=== PATIENT | male | born 1945 | race Caucasian/White ===

== ENCOUNTER 2023-07-01 20:11 | Outpatient (CLI) | payer MEDICARE, BC, SELFPAY ==
--- OUTSIDE RECORDS SUMMARY | 2023-07-01 20:15 | XMS_ITS | Continuity of Care Document ---
Author Name Unknown Organization [facility] Address [address] [place] [address] Phone Care Team Providers Care Spinner Concrete Pipe Name Role Phone Delmer Luu MD Unavailable Unavailable Allergies, Adverse Reactions, Alerts Substance Reaction Status Criticality venom-honey bee Swelling Active No Informati on PROCAINE HCL Active No Information Medications Medication Instructions Dosage Effective Dates (start - stop) Status Comments meloxicam 15 mg tablet take 1 tablet by oral route every day 15 MG - Active hydroxychloroquine 200 mg tablet take 1 Tablet by oral route 2 times every day 200 MG - Active rosuvastatin 5 mg tablet take 1 tablet b y oral route every day 5 MG - Active vitamin E 670 mg (1,000 unit) capsule One daily - Active Vitamin D3 50 mcg (2,000 unit) tablet take 1 by Oral route every day 1 - Active tamsulosin 0.4 mg capsule take 1 capsule by oral route every day 1/2 hour following the same meal each day 0.4 MG - Active Flonase Allergy Relief 50 mcg/actuation nasal spray,suspension inhale 1 puff by oral route every day 1 puff - Active Vitamin B-12 1,000 mcg tablet take 1 Tablet by Oral route every day 1 Tablet - Active magnesium 250 mg tablet 2 tabs daily - Act lolis Fish Oil 1,000 mg capsule take 1 by Oral route 2 times every day - Active Restasis 0.05 % Eye Dropperette instill 1 drop by ophthalmic route every 12 hours into affected eye(s) 1.00 drop - Active Procedures Procedure Date Office/Outpatient Visit, Est Routine Venipuncture Specimen Handling Assay Of Creatinine Assay Alkaline Phosphatase Transferase (Ast) (Sgot) Alanine Amino (Alt) (Sgpt) Assay Of Urea Nitrogen Assay Of Blood/Uric Acid CReactive Protein Dna Antibody, Single Strand Dna Antibody, [place] Nuclear Antigen Antibodies Complete Cbc WAuto Diff Wbc Office/Outpatient Visit, Est Routine Venipuncture Specimen Handling Assay Of Creatinine Assay Alkaline Phosphatase Transferase (Ast) (Sgot) Alanine Amino (Alt) (Sgpt) Assay Of Urea Nitrogen Assay Of Blood/Uric Acid CReactive Protein Dna Antibody, Single Strand Dna Antibody, [place] Nuclear Antigen Antibodies Vitamin D 25 Hydroxy Complete Cbc WAuto Diff Wbc Office/Outpatient Visit, Est Routine Venipuncture Specimen Handling Assay Of Creatinine Assay Alkaline Phosphatase Transferase (Ast) (Sgot) Alanine Amino (Alt) (Sgpt) Assay Of Urea Nitrogen Assay Of Blood/Uric Acid CReactive Protein Dna Antibody, Single Strand Dna Antibody, [place] Nuclear Antigen Antibodies Vitamin D 25 Hydroxy Complete Cbc WAuto Diff Wbc Office/Outpatient Visit, Est Routine Venipuncture Specimen Handling Assay Of Creatinine Assay Alkaline Phosphatase Transferase (Ast) (Sgot) Alanine Amino (Alt) (Sgpt) Assay Of Urea Nitrogen Assay Of Blood/Uric Acid CReactive Protein Dna Antibody, Single Strand Dna Antibody, [place] Nuclear Antigen Antibodies Complete Cbc WAuto Diff Wbc Office/Outpatient Visit, Est Routine Venipuncture Specimen Handling Assay Of Creatinine Assay Alkaline Phosphatase Transferase (Ast) (Sgot) Alanine Amino (Alt) (Sgpt) Assay Of Urea Nitrogen Assay Of Blood/Uric Acid CReactive Protein Dna Antibody, Single Strand Dna Antibody, [place] Nuclear Antigen Antibodies Complete Cbc WAuto Diff Wbc Office/Outpatient Visit, Est Routine Venipuncture Specimen Handling Assay Of Creatinine Assay Alkaline Phosphatase Transferase (Ast) (Sgot) Alanine Amino (Alt) (Sgpt) Assay Of Urea Nitrogen Assay Of Blood/Uric Acid CReactive Protein Dna Antibody, Single Strand Dna Antibody, [place] Nuclear Antigen Antibodies Complete Cbc WAuto Diff Wbc Office/Outpatient Visit, Est Routine Venipuncture Assay Of Creatinine Assay Alkaline Phosphatase Transferase (Ast) (Sgot) Alanine Amino (Alt) (Sgpt) Assay Of Urea Nitrogen Assay Of Blood/Uric Acid CReactive Protein Complete Cbc WAuto Diff Wbc Office/Outpatient Visit, Est Routine Venipuncture Specimen Handling Rbc Sed Rate, Nonautomated Assay Of Creatinine Assay Alkaline Phosphatase Transferase (Ast) (Sgot) Alanine Amino (Alt) (Sgpt) Assay Of Urea Nitrogen Assay Of Blood/Uric Acid CReactive Protein Dna Antibody, Single Strand Dna Antibody, [place] Nuclear Antigen Antibodies Complete Cbc WAuto Diff Wbc Office/Outpatient Visit, Est Routine Venipuncture Rbc Sed Rate, Nonautomated CReactive Protein Dna Antibody, Single Strand Dna Antibody, [place] Nuclear Antigen Antibodies Office/Outpatient Visit, Est Routine Venipuncture Specimen Handling Complete Cbc WAuto Diff Wbc CReactive Protein Assay Of Serum Albumin Assay Of Creatinine Transferase (Ast) (Sgot) Alanine Amino (Alt) (Sgpt) Office/Outpatient Visit, Est Routine Venipuncture Specimen Handling Complete Cbc WAuto Diff Wbc Assay Of Serum Albumin Assay Of Creatinine Transferase (Ast) (Sgot) Alanine Amino (Alt) (Sgpt) CReactive Protein Dna Antibody, Single Strand Dna Antibody, [place] Nuclear Antigen Antibodies Office/Outpatient Visit, Est Routine Venipuncture Specimen Handling Complete Cbc WAuto Diff Wbc CReactive Protein Assay Of Serum Albumin Assay Of Creatinine Transferase (Ast) (Sgot) Alanine Amino (Alt) (Sgpt) Office/Outpatient Visit, Est Office/Outpatient Visit, Est Routine Venipuncture Complete Cbc WAuto Diff Wbc CReactive Protein Assay Of Serum Albumin Assay Of Creatinine Transferase Ast Sgot Alanine Amino (Alt) (Sgpt) Office/Outpatient Visit, Est Routine Venipuncture CReactive Protein Complete Cbc WAuto Diff Wbc Assay Of Serum Albumin Assay Of Creatinine Transferase Ast Sgot Alanine Amino Alt Sgpt Advance Directives Directive Yes / No Effective Date File Name No Information Encounters Encounter Description Practice Location Reason(s) For Visit Diagnoses Date Provider Providers Copied on Encounter [facility] , [address], [place], [address], [place] tel:[phone] [facility] , No Information 3 Jus Dowell. [facility] [address], [place], [address], [place]. tel:[phone] Office/Outpa tient Visit, Est [facility] , [address], [place], [address], [place] tel:[phone] [facility] , Follow Up of Sjogren's syndrome (chief complaint) Sjogren's syndromeSpin al stenosis, lumbar region with neurogenic claudication Radiculopath y, cervical regionSciati caLong term (current) use of non-steroida l anti-inflamm atories (NSAID) 3 Jus Dowell. [facility] [address], [place], [address], [place]. tel:[phone] Referring Provider: Delmer Marcum, [facility] [address], [place], [address]. tel:[phone] Office/Outpa tient Visit, Est [facility] , [address], [place], [address], [place] tel:[phone] [facility] , Follow Up of Sjogren's syndrome (chief complaint) Sjogren's syndromeSpin al stenosis, lumbar region with neurogenic claudication Radiculopath y, cervical regionSciati caAbnormal results of liver function studiesLong term (current) use of non-steroida l anti-inflamm atories (NSAID) 3 Jus Dowell. [facility] [address], [place], [address], [place]. tel:[phone] Referring Provider: Delmer Marcum, [facility] [address], [place], [address]. tel:[phone] Office/Outpa tient Visit, Est [facility] , [address], [place], [address], [place] tel:[phone] [facility] , Follow Up of Sjogren's syndrome (chief complaint) Abnormal results of liver function studiesSjogr en's syndromeSpin al stenosis, lumbar region with neurogenic claudication Radiculopath y, cervical regionLong term (current) use of non-steroida l anti-inflamm atories (NSAID)Vitam in B12 deficiencySc iatica 3 Jus Dowell. [facility] [address], [place], [address], [place]. tel:[phone] Referring Provider: Delmer Marcum, [facility] [address], [place], [address]. tel:[phone] Office/Outpa tient Visit, Est [facility] , [address], [place], [address], [place] tel:[phone] [facility] , Follow Up of Sjogren's syndrome (chief complaint) Sjogren's syndromeSpin al stenosis, lumbar region with neurogenic claudication Radiculopath y, cervical regionLong term (current) use of non-steroida l anti-inflamm atories (NSAID)Abnor mal results of liver function studies 2 Jus Dowell. [facility] [address], [place], [address], [place]. tel:[phone] Referring Provider: Delmer Marcum, [facility] [address], [place], [address]. tel:[phone] Office/Outpa tient Visit, Est [facility] , [address], [place], [address], [place] tel:[phone] [facility] , Follow Up of Sjogren's syndrome (chief complaint) Sjogren's syndromeSpin al stenosis, lumbar region with neurogenic claudication Radiculopath y, cervical regionLong term (current) use of non-steroida l anti-inflamm atories (NSAID) 1 Jus Dowell. [facility] [address], [place], [address], [place]. tel:[phone] Referring Provider: Delmer Marcum, [facility] [address], [place], [address]. tel:[phone] Office/Outpa tient Visit, Est [facility] , [address], [place], [address], [place] tel:[phone] [facility] , Follow Up of Sjogren's (chief complaint)Fo llow Up of Osteoarthrit is (chief complaint) Spinal stenosis, lumbar region with neurogenic claudication Radiculopath y, cervical regionSicca syndrome with other organ involvementL selvin term (current) use of non-steroida l non-inflam (NSAID) 9 Jus Dowell. [facility] [address], [place], [address], [place]. tel:[phone] Referring Provider: Delmer Marcum, [facility] [address], [place], [address]. tel:[phone] Office/Outpa tient Visit, Est [facility] , [address], [place], [address], [place] tel:[phone] [facility] , Follow Up of Sjogren's (chief complaint)Fo llow Up of Osteoarthrit is (chief complaint) Sicca syndrome with other organ involvementS pamela stenosis, lumbar region with neurogenic claudication Radiculopath y, cervical regionLong term (current) use of non-steroida l non-inflam (NSAID) 9 Jus Dowell. [facility] [address], [place], [address], [place]. tel:[phone] Referring Provider: Delmer Marcum, [facility] [address], [place], [address]. tel:[phone] Office/Outpa tient Visit, Est [facility] , [address], [place], [address], [place] tel:[phone] [facility] , Follow Up of Sjogren's (chief complaint) Sicca syndrome with other organ involvementS pamela stenosis, lumbar region with neurogenic claudication salvage determiner use of NSAID 9 Jus Dowell. [facility] [address], [place], [address], [place]. tel:[phone] Referring Provider: Delmer Marcum, [facility] [address], [place], [address]. tel:[phone] Office/Outpa tient Visit, Est [facility] , [address], [place], [address], [place] tel:[phone] [facility] , Follow Up of Sjogren's (chief complaint) Sjogren's syndromePain in jointSpinal stenosis, lumbar region with neurogenic claudication Jus Dowell. [facility] [address], [place], [address], [place]. tel:[phone] Referring Provider: Delmer Marcum, [facility] [address], [place], [address]. tel:[phone] Office/Outpa tient Visit, Est [facility] , [address], [place], [address], [place] tel:[phone] [facility] , Follow Up of Sjogren's (chief complaint) Sjogren's syndromeDiar miguel angel, unspecified Jus Dowell. [facility] [address], [place], [address], [place]. tel:[phone] Referring Provider: Delmer Marcum, [facility] [address], [place], [address]. tel:[phone] Office/Outpa tient Visit, Est [facility] , [address], [place], [address], [place] tel:[phone] [facility] , Follow Up of Sjogren's (chief complaint) Sjogren's syndromeDiar miguel angel, unspecifiedO bstructive sleep apnea 6 Jus Dowell. [facility] [address], [place], [address], [place]. tel:[phone] Referring Provider: Delmer Marcum, [facility] [address], [place], [address]. tel:[phone] Office/Outpa tient Visit, Est [facility] , [address], [place], [address], [place] tel:[phone] [facility] , Follow Up of Sjogren's (chief complaint) Sjogren's syndromeDiar rheaDysphagi a, oral phase 5 Jus Dowell. [facility] [address], [place], [address], [place]. tel:[phone] Referring Provider: Delmer Marcum, [facility] [address], [place], [address]. tel:[phone] Office/Outpa tient Visit, Est [facility] , [address], [place], [address], [place] tel:[phone] [facility] , Sjogren's (chief complaint) Sicca syndromeDiar miguel angel 4 Jus Dowell. [facility] [address], [place], [address], [place]. tel:[phone] Referring Provider: Delmer Marcum, [facility] [address], [place], [address]. tel:[phone] Office/Outpa tient Visit, Est [facility] , [address], [place], [address], [place] tel:[phone] [facility] , Sjogren's (chief complaint) Sicca syndromeDiar rheaTherapeu tic Drug Monitoring 3 Jus Dowell. [facility] [address], [place], [address], [place]. tel:[phone] Referring Provider: Delmer Marcum, [facility] [address], [place], [address]. tel:[phone] Office/Outpa tient Visit, Est [facility] , [address], [place], [address], [place] tel:[phone] [facility] , Sjogren's (chief complaint) Sicca syndromeTher apeutic Drug Monitoring 2 Jus Dowell. [facility] [address], [place], [address], [place]. tel:[phone] Referring Provider: Delmer Marcum, [facility] [address], [place], [address]. tel:[phone] [facility] , [address], [place], [address], [place] tel:[phone] [facility] , No Information 2 Isabelle Bates. [facility] [address], [place], [address], [place]. tel:[phone] Family History Family Member Type Diagnosis Age At Onset No Information Immunizations Vaccine Date Status Comments COVID-19 Pfizer administered Source: Othe r Provider COVID-19 Pfizer administered Source: Othe r Provider Payers Payer name Insurance type Covered republican ID Marcos sanders(s) [employer] Medicare Advantage/Plat inum Blue BL [id number] Social History Type Description Quantity Date Captured Comments Alcohol Use Details Unknown Caffeine Use Details Unknown Tobacco Use Status No Information Smoking Status No Information Sex Male Chief Complaint And Reason For Visit No Information Reason For Referral Reason For Referral No Information Plan Of Treatment Date Type Action Status Goal Tobacco cessation counseling completed History Of Present Illness Encounter Date Complaint History Of Prese nt Illness Follow Up of Sjogren's syndrome Follow Up of Sjogren's syndrome Follow Up of Sjogren's syndrome Follow Up of Sjogren's syndrome Follow Up of Sjogren's syndrome Follow Up of Sjogren's Follow Up of Osteoarthritis Follow Up of Sjogren's Follow Up of Osteoarthritis Follow Up of Sjogren's Follow Up of Sjogren's Follow Up of Sjogren's Follow Up of Sjogren's Follow Up of Sjogren's Functional Status Date Functional Assessmen t No Information Instructions Date Instruction Additional Infor mation See discussion above. Related to Sciatica Although he attribut es the absence of skin rash to the clothing that he has been wearing, that obviously does not cover his hands and face. He has not had any rash over this summer. I think the hydroxychloroquine is also helping him. He tolerates it well as long as he is able to use Imodium with that on an infrequent as needed basis. I did not recommend any change in this for now. Related to Sjogren's syndrome He is much more symp tomatic from this today compared to the last time I saw him. I wonder if that is partly related to having stopped the sulindac and gabapentin although it sounds as if symptoms were worse even before he did that. He has not gotten any relief from physical therapy or epidural injections. I am going to try meloxicam 15 mg daily and also told him he could supplement that with Tylenol [facility] 2 tablets 3 times daily as needed. I asked him to call in 2 weeks with progress. He may be a candidate for referral to a pain clinic. Note that he has failed extensive low back surgery. Related to Spinal stenosis, lumbar region with neurogenic claudication I encouraged him to continue the sulindac, at least until I see results of the MRI scan of his back. I suspect that his back symptoms would actually be worse without it. Related to group home (current) use of non-steroidal anti-inflammatories (NSAID) He is doing better w ith the symptoms compared to a year ago. 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 It does seem to be somewhat improved today compared to the last time I saw him since he has been able to take the hydroxychloroquine more regularly. I recommended continuing that at his twice a day dosing. He will also continue to control the diarrhea with relatively infrequent use of [id number] Imodium. Related to Sjogren's syndrome He does not have sym ptoms to suggest cervical radiculopathy at this time. Related to Radiculopathy, cervical region This is currently hi s most limiting problem. His pain level is definitely improved today compared to the last time I saw him. This is likely attributable to the increased gabapentin and physical therapy with which she is participating. He is also still taking sulindac twice daily regularly and feels like that helps without obvious side effects. Related to Spinal stenosis, lumbar region with neurogenic claudication When I saw him on 06/2022, his liver enzymes were essentially back to normal???ALT of 27 with normal up to 40 and AST of 39 with normal up to 34. I will recheck these today. Related to Abnormal results of liver function studies I encouraged him to continue the sulindac, at least until I see results of the MRI scan of his back. I suspect that his back symptoms would actually be worse without it. Related to group home (current) use of non-steroidal anti-inflammatories (NSAID) See discussion above. Related to Sciatica See discussion above. Related to Sciatica The vitamin B12 defi ciency is more common in the setting of Sjogren syndrome. We will check a vitamin B12 level today on his current dose of replacement. Related to Vitamin B12 deficiency He does not have sym ptoms to suggest cervical radiculopathy at this time. Related to Radiculopathy, cervical region He developed a signi ficant rash this last summer. He is insistent that he actually had 2 different rashes, one on his back and 1 on his arms. Both slowly resolved and were essentially gone by the time he was seen at the [facility]. Nevertheless, biopsy confirmed a likely autoimmune cause of the rash consistent with Sjogren syndrome. I agree that he ideally would go back on treatment for his Sjogren syndrome in this setting. He did have frequent loose stools when he was taking hydroxychloroquine twice daily previously. I am going to have him try a dose of 200 mg once daily and encouraged him to call if he does have any side effects with that. I reminded him that he should have special ophthalmologic testing yearly while on hydroxychloroquine. Related to Sjogren's syndrome When I saw him on 06/2022, his liver enzymes were essentially back to normal???ALT of 27 with normal up to 40 and AST of 39 with normal up to 34. I will recheck these today. Related to Abnormal results of liver function studies He has a history of lumbar spinal stenosis although he had been virtually asymptomatic from that the last time I saw him. I suspect that his current back symptoms are directly related to that although we must keep in mind that he also has prostate cancer. It is also of note that he has lost 6 pounds since I last saw him less than a year ago. Serum electrophoresis and/or bone scan may be helpful diagnostically if the MRI scan of his back is not consistent with his symptoms. Related to Spinal stenosis, lumbar region with neurogenic claudication I encouraged him to continue the sulindac, at least until I see results of the MRI scan of his back. I suspect that his back symptoms would actually be worse without it. Related to group home (current) use of non-steroidal anti-inflammatories (NSAID) He had mildly elevat ed liver enzymes the last time I saw him a year ago. He has altered alcohol intake since then. These will be rechecked today. 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 Related to Spinal stenosis, lumbar region with neurogenic claudication His symptoms of Sjog dawn's syndrome are stable. He does not seem to be developing any severe complications of this condition. I do not think he needs disease modifying therapy for this at this point. Related to Sjogren's syndrome Likewise, he is also doing very well with the symptoms related to osteoarthritis in his neck. Related to Radiculopathy, cervical region He will have routine laboratories today for monitoring medications and disease. Related to group home (current) use of non-steroidal anti-inflammatories (NSAID) He has lumbar and ce rvical spinal stenosis related to underlying osteoarthritis. He has virtually no symptoms related to these issues today. Related to Spinal stenosis, lumbar region with neurogenic claudication See discussion above. Related to Radiculopathy, cervical region He will have routine laboratories today for monitoring medications and disease. Related to group home (current) use of non-steroidal anti-inflammatories (NSAID) I still think he is doing well with his Sjogren's syndrome clinically although I will recheck laboratories for monitoring the disease today. At least at this time, I do not think he needs any disease modifying treatment for the Sjogren's syndrome. Related to Sjogren's syndrome He also will have ro utine laboratories for monitoring the sulindac. Unless these suggest toxicity, I do not anticipate changing his sulindac dose. Related to group home (current) use of non-steroidal non-inflam (NSAID) He is doing better w ith his low back and neck today compared to the last time I saw him approximately 6 months ago. I did not recommend any change in the sulindac at this time. Note that he did try stopping that temporarily and did not feel as well. Related to Spinal stenosis, lumbar region with neurogenic claudication See discussion above regarding the lumbar spinal stenosis. Related to Radiculopathy, cervical region He Sjogren's syndrom e is stable. There is no evidence to suggest systemic complications of this. He will have routine laboratories for monitoring this. Related to Sicca syndrome with other organ involvement He describes symptom s consistent with intermittent cervical radiculopathy, also likely related to underlying osteoarthritis in the neck. He is able to manage this simply by changing position of his neck. He does not have a lot of neck pain. He feels like the symptoms are improving over time rather than getting worse. I did not recommend any additional evaluation or treatment of this issue today but I encouraged him to call if symptoms do become consistently worse. Related to Radiculopathy, cervical region He will have routine laboratories for monitoring his medication. Related to salvage determiner (current) use of non-steroidal non-inflam (NSAID) He is doing signific antly better with his low back pain and lumbar radiculopathy symptoms with the sulindac. Unless laboratories suggest a problem with the medication, he will continue that. I will see him back in 6 months, however, rather than one year. Related to Spinal stenosis, lumbar region with neurogenic claudication He is doing well wit h his Sjogren's syndrome. He will continue his same conservative management of that. Related to Sicca syndrome with other organ involvement See discussion above. Related to salvage determiner use of NSAID He has chronic low b ack pain with symptoms of spinal stenosis. I think he might do better with more regular use of an anti-inflammatory medication. I recommended a trial of meloxicam 7.5 milligrams once daily in the evening. I did discuss potential side effects of this medication with him in detail and encouraged him to call if there is a problem. I will see him back sooner than his typical one year followup. Related to Spinal stenosis, lumbar region with neurogenic claudication Overall he feels abo ut the same with his Sjogren's syndrome. I think it is possible that the episodes of localized arthritis involving his right ankle, left wrist, and left knee at different times could be related to his Sjogren's syndrome although it's also possible that these could be related to a crystal arthritis based on his description. I don't think he needs to be back on a disease modifying agent for his Sjogren's syndrome. I will do routine followup laboratories for this. Note that I had him cut back on his dose of fish oil to 4 of the 1200 mg capsules per day. 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 With understanding, he can probably avoid the symptoms or at least resolving quickly when they occur. I'm not sure if he would benefit from physical therapy but did not prescribe that today. 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 He admits that he is taking low doses of fish oil. We discussed dosing of this. I should note that I'm not sure if the Sjogren's syndrome is playing a role in his increased hand pain. This could indeed be mainly related to overuse of his hands over the years and also recently. I would like to see results of his laboratories before deciding whether to resume Plaquenil. Related to Sjogren's syndrome See discussion above. Related to Pain in joint He seems to be doing well overall with her Sjogren's syndrome. I will recheck laboratories today but don't anticipate making any change in its treatment. Related to Sjogren's syndrome His chronic diarrhea but this is manageable at its current level of 2-3 loose stools in the morning. No additional evaluation or treatment was recommended for this either. Related to Diarrhea, unspecified I think it's very li kelsey that his diarrhea is related to his supplements. This is much less bothersome for him now compared to a year ago since having cut back somewhat on his supplements. No additional evaluation or treatment was recommended. Related to Diarrhea, unspecified The sleep apnea like ly does contribute to any dryness of his mouth. He are he has plans to followup with his sleep physician. Related to Obstructive sleep apnea His symptoms of Sjog dawn's syndrome, now mainly arthritis and dry eyes, have been stable for several years. I don't think he needs to go back on Plaquenil. He will continue the Restasis and omega-3 supplements. Related to Sjogren's syndrome See discussion above. Related to Dysphagia, oral phase The cause of his kemi rrhea is not clear to me. I have some concern that his combination of multiple supplements may ask be contributing to this. I suggested that he do sequential trials off of the fish oil, cod liver oil, omega-3 capsules, and flaxseed oil that he is currently taking. I encouraged him to call if he does not find improvement with discontinuing any of these. Related to Diarrhea Although there has b een no obvious flare in his arthritis off of the Plaquenil, he certainly has significant symptoms of his Sjogren's syndrome, mainly the issues with his eyes and thick oral secretions that make it sometimes difficult for him to swallow. 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 I also recommended followup with an nuclear radiation engineer regarding the difficulty swallowing. I also reviewed conservative measures for managing the dry eyes and decreased salivary secretions. I did not recommend Evoxac at this time. Related to Sjogren's syndrome Assessments Type Assessment Date No Information Patient Care Teams Name Effective Dates (start - stop) Status Members No Information
--- NOTE | 2023-07-01 20:30 | CRLHL7_ITS ---
For Patients: As a result of the Century Cures Act, medical imaging exams and procedure reports are released immediately into your electronic medical record. You may view this report before your referring provider. If you have questions, please contact your health care provider. INDICATION: Low back pain. TECHNIQUE : Lumbar spine MRI without contrast. The following sequences were obtained: Sagittal T1, T2 weighted and STIR sequences. Axial T1 and T2 weighted sequences. COMPARISON: None. FINDINGS : Five lumbar type vertebral bodies, with the last fully formed disc space designated as L5-S1. Normal lumbar lordotic curve. No recent compression fracture or marrow replacing process. Lower cord/conus signal is normal. The conus terminates at a normal location. No intradural lesion. No extraspinal soft tissue abnormalities. Discs/Endplates: Moderate disc height loss and disc desiccation at L1-2. Mild disc height loss and disc desiccation at L3-4, L4-5 and L5-S1. Minimal disc degeneration ulcer. Findings at individual levels as follows: T11-12: Mild disc bulge. No spinal canal or neural foraminal stenosis. T12-L1: No spinal canal or neural foraminal stenosis. L1-2: Mild disc bulge with shallow central protrusion component. Mild spinal canal stenosis. Mild bilateral neural foraminal stenosis. L2-3: Mild disc bulge. Bilateral facet arthrosis. No significant spinal canal or neural foraminal stenosis. L3-4: Trace retrolisthesis. Moderate bilobed disc bulge. Chronic right laminotomy site. Bilateral facet arthrosis. Mild spinal canal stenosis, moderate left and moderately advanced right neural foraminal stenosis with impingement of the exiting right L3 nerve root. L4-5: Moderate disc bulge. Bilateral facet arthrosis and ligamentum flavum thickening. Advanced spinal canal stenosis with buckling of the cauda equina. Mbyf-zn-jauptegs bilateral neural foraminal stenosis. L5-S1: Moderate disc bulge. Bilateral high-grade facet arthrosis and ligamentum flavum thickening. Moderately advanced spinal canal stenosis. Moderate right and moderately advanced left neural foraminal stenosis with impingement of the exiting left L5 nerve root. Imaged SI joints: Bilateral SI joint arthrosis. Imaged sacrum: Within normal limits. IMPRESSION: 1. At L3-4, mild spinal canal stenosis, moderate left and moderately advanced right neural foraminal stenosis with impingement of the exiting right L3 nerve root. Chronic right laminotomy site. 2. At L4-5, advanced spinal canal stenosis with buckling of the cauda equina. 3. At L5-S1, moderately advanced spinal canal stenosis. Moderate right and moderately advanced left neural foraminal stenosis with impingement of the exiting left L5 nerve root. Dictated by Edgar Hallman MD @ 07/02/2023 3:19:44 PM (Electronically Signed)
== END 2023-07-01 20:12 | disposition home or self-care (01) ==
PROVIDERS: PCP Nurse Practitioner Family; Visit Provider Nurse Practitioner Acute Care
DX: M54.50 Low back pain, unspecified (principal); M48.061 Spinal stenosis, lumbar region without neurogenic claudication; M48.00 Spinal stenosis, site unspecified
CPT/HCPCS: 72148

== ENCOUNTER 2023-12-04 13:02 | Outpatient (CLI) | payer MEDICARE, BC, SELFPAY ==
--- OUTSIDE RECORDS SUMMARY | 2023-12-04 13:06 | XMS_ITS | Encounter Summary ---
Author Name Unknown Organization [facility] Address [address] [place] [address] Care Team Providers Care Change Room Attendant Name Role Phone Samara Lu APRN, C.N.P. Primary Care Provi adry Reason for Referral * Outpatient (Routine) - Authorized Specialty Diagnoses / Procedures Referred By Elvin baker Referred To Contact Podiatry Diagnoses Pain Heel Right Sue Robert APRN, C.N.P., D.N.P. [address] [address] Referral ID Status Reason Start Date Expiration Date Visits Requested Visits Authorized [id number] Authorized Service not available in [facility] 11/25/2023 05/26/2025 1 1 * Outpatient (Routine) - Closed Specialty Diagnoses / Procedures Referred By Contjaclyn t Referred To Contact Diagnoses Pain Heel Right Procedures DX Calcaneus Right 2 Views Sue Robert APRN, C.N.P., D.N.P. [address] [address] [facility] Referral ID Status Reason Start Date Expiration Date Visits Re quested Visits Authorized [id number] Closed 11/25/2023 11/24/2024 1 1 Reason for Visit * Reason Comments right heel pain Right heel pain-Feel s like something is in it for 2 to 3 weeks Other Last tetanus was 201 4 per pt. Encounter Details Date Type Department Care Team (Late st Contact Info) Description 11/25/2023 7:00 PM CDT Office Visit Department of Family Medicine, [facility], in [place], [place] [address] [phone] Sue Robert APRN, C.N.Nelson., D.N.P. [address] [phone] Need Vaccine Immunization (Primary Dx); Pain Heel Right Social History Tobacco Use Types Packs/Day Years Used Date Smoking Tobacco: Former Cigarettes 1 25 0 07/21/1959 - 01/24/1981 Smokeless Tobacco: Former Chew Quit: 01/24/1998 Alcohol Use Standard Drinks/Week Comments Yes 4 (1 standard drink = 0.6 oz pur e alcohol) Humiliation, Afraid, Rape, and Kick questionnair e Answer Date Recorded Within the last year, have y ou been afraid of your partner or ex-partner? No 04/12/2022 Within the last year, have y ou been humiliated or emotionally abused in other ways by your partner or ex-partner? No Within the last year, have y ou been kicked, hit, slapped, or otherwise physically hurt by your partner or ex-partner? No 04/12/2022 Within the last year, have y ou been raped or forced to have any kind of sexual activity by your partner or ex-partner? No 04/12/2022 Social Connection and Isolat ion Panel [NHANES] Answer Date Recorded In a typical week, how many times do you talk on the phone with family, friends, or neighbors? More than three times a week 04/12/2022 How often do you get togethe r with friends or relatives? Twice a week 04/12/2022 How often do you attend chur ch or taoist services? More than 4 times per year 04/12/2022 Do you belong to any clubs o r organizations such as roman catholic groups, unions, fraternal or athletic groups, or school groups? No 04/12/2022 How often do you attend meet ings of the clubs or organizations you belong to? Never 04/12/2022 Are you , , di vorced, , never , or living with a partner? 04/12/2022 AUDIT-C Answer Date Recorded Q1: How often do you have a drink containing alc ohol? 2-3 times a week 04/12/2022 Q2: How many drinks containi ng alcohol do you have on a typical day when you are drinking? 1 or 2 04/12/2022 Q3: How often do you have si x or more drinks on one occasion? Never 04/12/2022 Overall Financial Resource Strain (CARDIA) Answe r Date Recorded How hard is it for you to pa y for the very basics like food, housing, medical care, and heating? Not hard at all 04/12/2022 PHQ-2 Answer Date Recorded PHQ-2 Score 0 10/11/2022 [facility] - Occupational Stress Questionnaire Answer Date Recorded Do you feel stress - tense, restless, nervous, or anxious, or unable to sleep at night because your mind is troubled all the time - these days? Not at all 04/12/2022 Exercise Vital Sign Answer Date Recorde d On average, how many days pe r week do you engage in moderate to strenuous exercise (like a brisk walk)? 2 days 04/12/2022 On average, how many minutes do you engage in exercise at this level? 30 min 04/12/2022 Hunger Vital Sign Answer Date Recorded Within the past 12 months, y ou worried that your food would run out before you got the money to buy more. Never true 04/12/20 22 Within the past 12 months, t he food you bought just didn't last and you didn't have money to get more. Never true 04/12/2022 PRAPARE - Transportation Answer Date Re corded In the past 12 months, has l ack of transportation kept you from medical appointments or from getting medications? No 03/22 In the past 12 months, has l ack of transportation kept you from meetings, work, or from getting things needed for daily living? No 04/12/2022 Housing Stability Vital Sign Answer Delgado e Recorded In the last 12 months, was t here a time when you were not able to pay the mortgage or rent on time? No 04/12/2022 In the last 12 months, how many places have you lived? 1 04/12/2022 In the last 12 months, was t here a time when you did not have a steady place to sleep or slept in a alf (including now)? No 04/12/2022 Nutrition Answer Date Recorded Nutrition: EVOO Fat Source No 04/12 On average, how many serving s of fruits and vegetables do you eat per day (serving size is equal to 1 cup or approximately the size of a tennis ball)? 2-3 04/12/2022 Dental Answer Date Recorded Dental: Regular Dentist Yes 04/12/20 Employment Answer Date Recorded Employment status Retired 04/12/2022 Education Answer Date Recorded What is the highest level of school you have completed or the highest degree you have received? 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 - 11/25/2023 7:00 PM CDT [address] [place] [address] Get directions [phone] documented in this encounter Progress Notes * Sue Robert APRN, C.N.P., Sanjay.N.P. - 11/25/2023 7:00 PM CDT Images from the original note were not included. SUBJECTIVE CHIEF COMPLAINT / REASON FOR VISIT Billy James is a 78 y.o. male who presents for evaluation of right heel pain (Right heel pain-Feels like something is in it for 2 to 3 weeks ) and Other (Last tetanus was 2013 per pt.). HISTORY OF PRESENT ILLNESS Billy is a pleasant 78-year-old male who presents today for evaluation of right heel pain. Patientnotes that approximately 2-3 weeks ago he stepped on something. Patient notes that his did pull out a little bit of debris from his heel. He has had a couple other family members attempt to remove a foreign object without success. He has been using Epsom salt salts with no relief from his symptoms. Patient's last tetanus was in 2013. The following portions of the patient's history were reviewed and updated as appropriate: allergies, current medications, family history, medical history, social history, surgical history, and problem list. OBJECTIVE PHYSICAL EXAM Vitals and nursing note reviewed. Constitutional General: He is not in acute distress. Appearance: Normal appearance. He is not ill-appearing, toxic-appearing or diaphoretic. HENT Nose: Nose normal. Eyes Extraocular Movements: Extraocular movements intact. Conjunctiva/sclera: Conjunctivae normal. Pupils: Pupils are equal, round, and reactive to light. Cardiovascular Rate and Rhythm: Normal rate. Pulmonary Effort: Pulmonary effort is normal. Musculoskeletal General: Normal range of motion. Cervical back: Normal range of motion. Feet: Feet Right foot: Skin integrity: Skin integrity normal. Comments: No pain with palpitation of the heelSkin General: Skin is warm and dry. Neurological General: No focal deficit present. Mental Status: He is alert and oriented to person, place, and time. ASSESSMENT / PLAN #1 Need Vaccine Immunization - Tdap: Pofdysk-lrbqggiinq-lijzuxfdk pertussis vaccine (7 years and older) Tetanus updated by nursing #2 Pain Heel Right - DX Calcaneus Right 2 Views; Future; Expected date: 11/25/2023 - External referral physician (non-[facility]) X-ray of the heel obtained to look for foreign object as I was unable to palpate or visualize object and heal. X-rays with no evidence of radiopaque foreign object. Discussed x-ray results with patient in clinic. As I can not find any evidence of a foreign object in his heel discussed I do not wantto blindly make an incision to look foreign object. Discussed with patient that I would recommend follow up with Podiatry for further evaluation of his heel pain. Patient prefers to follow up with a [facility] in [place], he was provided with a referral. Questions answered to the best my ability and he states understanding of plan. documented in this encounter Plan of Treatment Upcoming Encounters Date Type Department Care Team (Late st Contact Info) Description 12/08/2023 8:45 AM CDT Office Visit Department of Urology in [place], [place] [address] [place] [phone] Heladio Ram M.D. [address] [place] [address] 12/16/2023 1:45 PM CDT Appointment Department of Radiation Oncology in [place], [place] [address] [place] [phone] Thomas Pino M.D. [address] [place] [address] documented as of this encounter Results * DX Calcaneus Right 2 Views (11/25/2023 7:31 PM CDT) Anatomical Region Laterality Modality Lower Extremity, Calcaneus, Musculoskeletal RST LOS, Musculoskeletal ARZ LOS, Muskuloskeletal FLA LOS Right Digit al Radiography Impressions 11/25/2023 7:35 PM CDT No radiopaque foreign body. Narrative 11/25/2023 7:35 PM CDT EXAM: DX CALCANEUS RIGHT 2 VIEWS COMPARISON: None FINDINGS: There are no fractures or dislocations. There is a small plantar spur off the calcaneus. The surrounding soft tissues appear normal, with no radiopaque foreign body. Procedure Note Nicholas Saenz M.D. - 11/25/2023 EXAM: DX CALCANEUS RIGHT 2 VIEWS COMPARISON: None FINDINGS: There are no fractures or dislocations. There is a small plantarspur off the calcaneus. The surrounding soft tissues appear normal, withno radiopaque foreign body. IMPRESSION: No radiopaque foreign body. Sue Robert APRN, C.N.P., D.N.P. 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 [address] [phone] PCP - General Family Medicine 03/18/22 documented as of this encounter
--- OUTSIDE RECORDS SUMMARY | 2023-12-04 13:06 | XMS_ITS | Encounter Summary ---
Author Name Unknown Organization [facility] Address [address] [place] [address] Care Team Providers Care Private Pilot Name Role Phone Samara Lu APRN, C.NFred Primary Care Provi adry Reason for Visit * Reason Onset Date Comments Return Call Request 11/27/2023 Encounter Details Date Type Department Care Team (Latest Contact Info) Description 11/27/2023 Clinical Communication Department of Urology in [place], [place] [address] [phone] Heladio Ram M.D. [address] [phone] Return Call Request Social History Tobacco Use Types Packs/Day Years [...] 04/12/2022 How often do you attend chur or mandaen services? More than 4 times per year 04/12/2022 Do you belong to any clubs o r organizations such as taoist groups, unions, fraternal or athletic groups, or [...] Answer Date Recorded PHQ-2 Score 0 10/11/2022 [facility] - Occupational Stress [...] money to buy more. Never true 04/12/20 Within the past 12 months, t he [...] place to sleep or slept in a care home (including now)? 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 [address] [place] [phone] 12/16/2023 1:45 PM CDT Appointment Department of Radiation Oncology in [place], [place] [address] [place] [phone] Thomas Pino M.D. 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 [address], [place] [phone] PCP - General Family Medicine 03/18/22 documented as of this encounter
--- OUTSIDE RECORDS SUMMARY | 2023-12-04 13:06 | XMS_ITS | Clinical Summary ---
Author Name Unknown Organization [facility] Address [address] [place] [address] Care Team Providers Care Placing Judge Name Role Phone Samara Lu APRN C.NRadhaPRadha Primary Care Provi adry Source Comments Patient records contain information from all sites at [facility]. For routine questions regarding patient records, call [phone] during business hours, M-F 8:00 AM - 5:00 PM Central Time. Record requests for emergency care only can be directed to [phone] at any time.[facility] Allergies Active Allergy Reactions Criticality Noted Date Comments Cat Dander Other (see comments) 10/11/2022 Pollen Extracts Other (see comments) 02/04/2022 sneezing Procaine Hcl GI intolerance 01/27/2023 Venom-Honey Bee Swelling 01/27/2023 Medications Medication Sig Dispensed Refills Start Date End Date Status omega 5-bnr-tzh-fish oil (fish oil) 100-160-1,000 mg capsule Take 1 capsule by mouth 2 (two) times a day. 05/02/2011 Active cycloSPORINE (Restasis) 0.05 % ophthalmic emulsionIndicatio ns:Sjogren's (Sicca) Syndrome (HCC) Administer 1 drop into both eyes 2 (two) times a day. 90 each 3 01/03/2021 Active magnesium 250 mg tablet Take 250 mg by mouth every morning before breakfast. Active fluticasone propionate (FLONASE) 50 mcg/actuation nasal spray Administer 2 sprays into each nostril daily. Active triamcinolone (KENALOG) 0.1 % cream APPLY TO AFFECTED AREA(S) TOPICALLY 1-2 TIMES DAILY NEEDED. AVOID FACE AND GROIN. 30 g 04/17/2022 Active cyanocobalamin (vitamin B-12) 1,000 mcg tabletIndications :Deficiency Vitamin B12 Take 1 tablet (1,000 mcg total) by mouth daily. 90 tablet 1 05/11/2022 Active VITAMIN E ACETATE ORAL Take 1 tablet by mouth daily. Active cholecalciferol, vitamin D3, 25 mcg (1,000 Unit) tablet Take 2,000 Units by mouth. 08/15/2022 Active hydrOXYchloroQUIN E (PLAQUENIL) 200 mg tablet Take 200 mg by mouth daily. 10/15/2022 Active rosuvastatin (CRESTOR) 5 mg tabletIndications :Hyperlipidemia Mixed Take 1 tablet (5 mg total) by mouth daily. 90 tablet 3 12/06/2022 Active tamsulosin (FLOMAX) 0.4 mg 24 hr capsule TAKE ONE CAPSULE BY MOUTH TWICE A DAY 180 capsule 3 02/05/2023 Active oxyCODONE (ROXICODONE) 5 mg immediate release tabletIndications :Chronic Pain/Nonacute Pain Take 1 tablet (5 mg total) by mouth daily as needed for severe pain or score 7-10 of 10 Indication: Chronic Pain/Nonacute Pain. 20 tablet 05/30/2023 Active pregabalin (LYRICA) 75 mg capsule TAKE ONE CAPSULE BY MOUTH AT BEDTIME FOR 7 DAYS THEN TAKE ONE CAPSULE BY MOUTH TWICE A DAY 06/03/2023 Active cephalexin (KEFLEX) 500 mg capsule Take 1 capsule (500 mg total) by mouth every 12 (twelve) hours for 3 doses. Please take one dose the night before marker/spacer placement, and the second dose the morning of the procedure. The 3rd pill is extra in case you drop or lose one of the others. 3 capsule 11/14/2023 11/16/2023 Hospital, Clinic, or Other Facility Administered Medication Ordered Dose Route Frequency Start Date End Date Status sodium phosphates enema 1 enema (FLEET)Indications:bowel evacuation 1 enema rectal Once 11/20/2023 11/20/2023 Ended Active Problems Problem Noted Date Diagnosed Date Spinal Stenosis Lumbosacral Region 01/03/2023 01/03/2023 Deficiency Vitamin B12 01/03/2023 Primary Malignant Neoplasm Of Prostate Cancer Staging:Clinical stage from 07/12/2021:Stage I(cT2a, cN0, cM0, PSA: 6.5, Grade Group: 1) - Signed by Heladio Ram M.D. on 07/12/2021 Hyperlipidemia Mixed 03/12/2017 Anemia 08/28/2015 Sjogren's (Sicca) Syndrome 08/20/2015 Overview: Sjogren's Syndrome Apnea Sleep Obstructive 08/20/2015 Polyp Colon 08/20/2015 Mass Abdominal Site 08/20/2015 Encounters Date Type Department Care Team Description 12/04/2023 11:48 AM CDT Hospital Encounter Department of Radiation Oncology in [address] [phone] Sharifa Mann M.D. 11/27/2023 10:00 AM CDT - 11/28/2023 5:40 PM CDT Hospital Encounter Department of Radiation Oncology in [address] [phone] Thomas Pino M.D. Primary Malignant Neoplasm Of Prostate (HCC) (Primary Dx) 11/27/2023 Clinical Communication Department of Urology in [address] [phone] Heladio Ram M.D. Return Call Request 11/25/2023 7:09 PM CDT - 11/25/2023 11:59 PM CDT Hospital Encounter Department of Radiology in [address] [phone] Sue Robert APRN, C.N.P., D.N.P. Pain Heel Right Discharge Disposition: Home or Self Care 11/25/2023 7:00 PM CDT Office Visit Department of Family Medicine, [facility], in [address] [phone] Sue Robert APRN, C.N.P., D.N.P. Need Vaccine Immunization (Primary Dx); Pain Heel Right 11/25/2023 Nurse Triage Department of Family Medicine, [facility], in [place], [place] [address] [place] [phone] Sharifa Morales R.N. Foreign Body in Skin (Metal sliver in Right heel) 11/20/2023 9:15 AM CDT - 11/20/2023 5:27 PM CDT Hospital Encounter Department of Radiology, [facility] in [place], [place] [address] [place] [phone] Sharifa Mann M.D. Primary Malignant Neoplasm Of Prostate (HCC) Discharge Disposition: Home or Self Care 11/20/2023 8:45 AM CDT Clinical Support [facility] in [place], [place] [address] [place] [address] Sharifa Mann M.D. Atkinson, Katherine R RSanjay Primary Malignant Neoplasm Of Prostate (HCC) 11/14/2023 8:54 AM CDT - 11/16/2023 1:42 PM CDT Hospital Encounter Department of Radiation Oncology in [place], [place] [address] [place] [phone] Thomas Pino M.D. Primary Malignant Neoplasm Of Prostate (HCC) (Primary Dx) 10/30/2023 1:30 PM CDT Office Visit Department of Urology in [place], [place] [address] [place] [phone] Heladio Ram M.D. Primary Malignant Neoplasm Of Prostate (HCC) (Primary Dx) 10/23/2023 3:30 PM CDT - 10/23/2023 11:59 PM CDT Hospital Encounter Department of Laboratory Medicine in [place], [place] [address] [place] [phone] Heladio Ram M.D. Primary Malignant Neoplasm Of Prostate (HCC) Discharge Disposition: Home or Self Care from Last 3 Months Immunizations Name Administration Dates Next Due HZV (ZOSTAVAX) 06/30/2011 Influenza high dose QV(65 ye ars or older) (PF) 06/07/2022 Influenza, Quadrivalent, Adj uvanted, Preservative Free 06/03/2023,05/30/2021,05/26/2020 Influenza, Unspecified 05/04/2015,2013,06/10/2013,2010,07/20/2009 PCV13 08/14/2015 PPSV23 05/02/2011 RSV: respiratory syncytial v irus (ABRYSVO) bivalent vaccine 07/08/2023 SARS-COV-2 (COVID-19) - PFIZ ER BIVALENT TS(Discontinued)(12 YEARS OR OLDER) 06/07/2022 Td (Adult), adsorbed 08/27/2008 Tdap 11/25/2023,05/20/2014 MATTHEW 06/30/2011 influenza high dose (65 year s or older) (PF) 05/25/2019,06/04/2018,06/11/2017,2015 Family History Medical History Relation Name Comments Diabetes Brother 1 Glaucoma Brother 1 Prostate cancer Brother 1 Skin cancer Brother 1 Alzheimer's disease Brother 2 Stroke Father Parkinsons disease Mother Breast cancer Sister Verenice Kidney cancer Sister Verenice Relation Name Status Comments Brother 1 Brother 2 Brother 3 Brother 4 Brother 5 Brother 6 Brother 7 Brother 8 Father Mother Sister Verenice Alive Social History Tobacco Use Types Packs/Day Years [...] How often do you attend chur or bahai services? More than 4 times per year 04/12/2022 Do you belong to any clubs o r organizations such as faith groups, unions, fraternal or athletic groups, or [...] Answer Date Recorded PHQ-2 Score 0 10/11/2022 [facility] - Occupational [...] place to sleep or slept in a intermediate (including now)? 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 Last Filed Vital Signs Vital Sign Reading Time Taken Comments Blood Pressure 140/56 11/27/2023 10:19 AM CDT Pulse 90 11/27/2023 10:19 AM CDT Temperature 36.4 ??C (97.6 ??F) 11/27/2023 10:19 AM C DT Respiratory Rate 16 04/04/2023 2:51 PM CDT Oxygen Saturation 96% 11/25/2023 6:55 PM CDT Inhaled Oxygen Concentration - - Weight 76 kg (167 lb 8.8 oz) 11/27/2023 10:19 AM CDT Height 168 cm (5' 6.14) 10/25/2022 10:48 AM CDT Body Mass Index 26.93 10/25/2022 10:48 AM CDT Plan of Treatment Upcoming Encounters Date Type Department Care Team (Late st Contact Info) Description 12/08/2023 8:45 AM CDT Office Visit Department of Urology in [place], [place] [address], [place] [phone] Heladio Ram M.D. [address] [phone] 12/16/2023 1:45 PM CDT Appointment Department of Radiation Oncology in [place], [place] [address] [place] [phone] Thomas Pino M.D. [address] [place] [address] Health Maintenance Due Date Last Done Comments Visit: Medicare Annual Wellness 1945 Varicella Vaccines (2 of 2 - 13+ 2-dose series) 07/28/2011 06/30/2011, 06/30/2011 Zoster Vaccines (1 of 2) 08/25/2011 06/30/2011 Depression Screening (Annual PHQ-2) 07/21/2023 Fall Risk Screen (Annual) 07/21/2023 COVID-19 Vaccine ( season) 2023 06/03/2023, 06/07/2022, 02/27/2022, Additional history exists Visit: Annual, age 65+ (or Medicare and <65) 11/24/2024 11/25/2023 DTaP,Tdap,and Td Vaccines (3 - Td or Tdap) 11/24/2033 11/25/2023, 05/20/2014, 08/27/2008 Abdominal Aortic Aneurysm (AAA) Screen Discontinued 08/14/2015 Pneumococcal vaccine (65+ years) Completed 08/14/2015, 05/02/2011 Colonoscopy Discontinued 04/14/2018, 04/02/2013 Colorectal Cancer Surveillance Discontinued Hepatitis C Screening Completed 01/03/2021 Influenza Vaccine Completed 06/03/2023, , 05/30/2021, Additional history exists RSV vaccine - (32-36 weeks) or 60+ years Completed 07/08/2023 CT Colonography Discontinued Cologuard Discontinued HPV Vaccines Aged Out No longer eligi ble based on patient's age to complete this topic Medical Devices Implanted Type Area Citrus Fruit Packer Device Identifier Shelf Expiration Date Model / Serial / Lot Marker Tissue Biomarc Kv 1x5 - [id number] Implanted:Qt y: 4 on 11/20/2023 by Kan Marquez M.B., Ch.B. at [facility] Imaging Marker Circumferen tial: Prostate [facility] [id number] 07/03/2028 [id number] / / [id number] Procedures Procedure Name Priority Date/Time Associated Diagnosis Comments INITIAL RAD ONC TREATMENT PLANNING CT SIMULATION Routine 12/04/2023 1:00 PM CDT Primary Malignant Neoplasm Of Prostate (HCC) DX CALCANEUS RIGHT 2 VIEWS RAD - Semiurgent (Fast; most ED patients; some inpatients) 11/25/2023 7:31 PM CDT Pain Heel Right US PROSTATE FIDUCIAL MARKER PLACEMENT WITH HYDROGEL SPACER RAD - Routine (most inpatients and all outpatients) 11/20/2023 11:39 AM CDT Primary Malignant Neoplasm Of Prostate (HCC) PROSTATE-SPECIFIC AG (PSA) DIAGNOSTIC, S Routine 10/23/2023 3:37 PM CDT Primary Malignant Neoplasm Of Prostate (HCC) CREATININE WITH EGFR, S/P Routine 10/23/2023 3:37 PM CDT Primary Malignant Neoplasm Of Prostate (HCC) ALKALINE PHOSPHATASE, S/P Routine 10/23/2023 3:37 PM CDT Primary Malignant Neoplasm Of Prostate (HCC) HCV AB SCRN W/REFLEX TO HCV PCR, S Routine 01/03/2021 8:48 AM CDT Screening Examination For Viral Disease US AORTA Routine 08/14/2015 9:52 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 IMG DI AGNOSTIC IMAGING PROCEDURES * US Prostate Fiducial Marker Placement with Hydrogel Spacer (11/20/2023 11:39 AM CDT) Anatomical Region Laterality Modality Pelvis, Ultrasound RST LOS, Ultrasound ARZ LOS, Vascular Interventional FLA LOS N/A Ultrasound Impressions 11/20/2023 11:12 AM CDT 1. Successful ultrasound guided placement of 4 carbon seed markers into the prostate. No immediate complications. 2. Successful ultrasound guided injection of 10 cc's hydrogel between the prostate and rectum. No immediate complications. NR Narrative 11/20/2023 11:12 AM CDT EXAM: US PROSTATE FIDUCIAL MARKER PLACEMENT WITH HYDROGEL SPACER PRE-PROCEDURE: Patient seen and evaluated. Allergies, pertinent medications, and history reviewed. Discussed risks, benefits, alternatives for procedure, and obtained informed consent. Patient understands information and questions answered. Immediately prior to starting the procedure, in the presence of the assisting personnel, procedural pause was conducted to verify correct patient identity and verification of procedure to be performed, and as applicable, correct side and site, correct patient position, availability of implants, special equipment, or special requirements, and all image and specimen identification data. The roles and responsibilities of care team members, residents, and fellows were discussed. TECHNIQUE: Under the usual sterile preparations and using 1% lidocaine for local anesthesia, four seeds were placed into the prostate gland (right apex, left apex, left base, and right base) via a transperineal approach and under transrectal ultrasound guidance. Post-procedure images demonstrate the four seeds to be in good position. SpaceOAR hydrogel was prepared as described in the continuity tester's Instructions For Use. With the subject maintained in the dorsal lithotomy position, the transrectal ultrasound probe was positioned to enable visual guidance of the needle into the space between the prostate and the rectum. Under transrectal ultrasound guidance, the 18G needle was inserted through the rectourethralis muscle and the needle tip advanced into the perirectal fat inferior to the prostate all by using a transperineal approach. 1% lidocaine injected as needed for local anesthesia. ??The midline needle position with tip at mid gland was confirmed in both sagittal and axial lainez. A small amount of saline or lidocaine was injected to confirm appropriate needle tip position between the prostate and anterior rectal wall (Denonvilliers' fascia). The lidocaine syringe was then removed and the assembled SpaceOAR delivery system was attached to the 18G needle. ?? Under ultrasound guidance (sagittal plane), a smooth, continuous injection technique was used to dispense the SpaceOAR hydrogel into the space between the prostate and rectum (Denonvilliers' fascia and the anterior rectal wall). ??The entire syringe contents (10 mL total) were injected without stopping. ??Optimal visualization of the needle during hydrogel administration was maintained at all times. No suspected penetration or compromise of the rectal wall occurred. Needle removed and local pressure held until hemostasis was achieved. Patient tolerated both procedures well and left the department in good condition. Location: Prostate gland (right apex, left apex, right base, left base). Needle size: 18G Fiducial type: carbon Complication: None. Blood loss: None. PATIENT INSTRUCTIONS: Patient may be dismissed from the radiology department when dismissal criteria met. POST-PROCEDURE DIAGNOSIS: Prostate cancer. Procedure Note Kan Marquez M.B., Ch.B. - 11/20/2023 EXAM: US PROSTATE FIDUCIAL MARKER PLACEMENT WITH HYDROGEL SPACER PRE-PROCEDURE: Patient seen and evaluated. Allergies, pertinentmedications, and history reviewed. Discussed risks, benefits, alternativesfor procedure, and obtained informed consent. Patient understandsinformation and questions answered. Immediately prior to starting the procedure, in the presence of the assistingpersonnel, procedural pause was conducted to verify correct patientidentity and verification of procedure to be performed, and as applicable,correct side and site, correct patient position, availability of implants, special equipment, or specialrequirements, and all image and specimen identification data. The rolesand responsibilities of care team members, residents, and fellows werediscussed. TECHNIQUE: Under the usual sterile preparations and using 1% lidocaine forlocal anesthesia, four seeds were placed into the prostate gland (rightapex, left apex, left base, and right base) via a transperineal approachand under transrectal ultrasound guidance. Post-procedure images demonstrate the four seeds to be in goodposition. SpaceOAR hydrogel was prepared as described in the continuity tester'sInstructions For Use. With the subject maintained in the dorsal lithotomyposition, the transrectal ultrasound probe was positioned to enable visualguidance of the needle into the space between the prostate and the rectum. Under transrectal ultrasound guidance, the 18G needle was inserted throughthe rectourethralis muscle and the needle tip advanced into the perirectalfat inferior to the prostate all by using a transperineal approach. 1%lidocaine injected as needed for local anesthesia. The midline needle position with tip at mid gland wasconfirmed in both sagittal and axial lainez. A small amount of saline orlidocaine was injected to confirm appropriate needle tip position betweenthe prostate and anterior rectal wall (Denonvilliers' fascia). The lidocaine syringe was then removed andthe assembled SpaceOAR delivery system was attached to the 18G needle. Under ultrasound guidance (sagittal plane), a smooth, continuous injectiontechnique was used to dispense the SpaceOAR hydrogel into the spacebetween the prostate and rectum (Denonvilliers' fascia and the anteriorrectal wall). The entire syringe contents (10 mL total) were injected without stopping. Optimalvisualization of the needle during hydrogel administration was maintainedat all times. No suspected penetration or compromise of the rectal walloccurred. Needle removed and local pressure held until hemostasis was achieved. Patient tolerated both procedures well and left the department in goodcondition. Location: Prostate gland (right apex, left apex, right base, left base). Needle size: 18G Fiducial type: carbon Complication: None. Blood loss: None. PATIENT INSTRUCTIONS: Patient may be dismissed from the radiologydepartment when dismissal criteria met. POST-PROCEDURE DIAGNOSIS: Prostate cancer. IMPRESSION: 1. Successful ultrasound guided placement of 4 carbon seed markers intothe prostate. No immediate complications. 2. Successful ultrasound guided injection of 10 cc's hydrogel between theprostate and rectum. No immediate complications. NR Sharifa Mann M.D. IMG US PROCEDURES * (ABNORMAL) PSA (Prostate-Specific Antigen), Diagnostic (10/23/2023 3:37 PM CDT) Prostate-Specific Ag 10.2(H) <=6.5 ng/mL 10/23/2023 4:17 PM CDT [facility] Comment: ----ADDITIONAL INFORMATION---- The testing method is an electrochemiluminescence assay manufactured by [employer] and performed on the Modular or Brandon system. Values obtained with different assay methods or kits may be different and cannot be used interchangeably. Test results cannot be interpreted as absolute evidence for the presence or absence of malignant disease. Blood (Blood, Venous) 10/23/2023 3:37 PM CDT 10/23/2023 3:47 PM CDT Heladio Ram M.D. LAB BLOOD ADD-ON [facility] [address] [place] [address], [facility] [place] [address] [place] [address] * Alkaline Phosphatase (10/23/2023 3:37 PM CDT) Alkaline Phosphatase, P 60 40 - 129 U/L 10/23/2023 4:10 PM CDT [facility] Blood (Blood, Venous) 10/23/2023 3:37 PM CDT 10/23/2023 3:47 PM CDT Heladio Ram M.D. LAB BLOOD ADD-ON Performing Organization Address [facility] Co de Phone Number [facility] [address] [place] [address], [place] [facility] [place] [address] [place] [address] * Creatinine with Estimated GFR (10/23/2023 3:37 PM CDT) Creatinine 0.99 0.74 - 1.35 mg/dL 10/23/2023 4:10 PM CDT [facility] Estimated GFR (eGFR) 78 >=60 mL/min/BSA 10/23/2023 4:10 PM CDT [facility] Comment: Estimated GFR calculated using the 2020 CKD_EPI creatinine equation. Blood (Blood, Venous) 10/23/2023 3:37 PM CDT 10/23/2023 3:47 PM CDT Heladio Ram M.D. LAB BLOOD ADD-ON Performing Organization Address City/[facility]/ZIP Co de Phone Number [facility] [address] [place] [address], [place] [facility] [facility] [place] [address] [place] [address] * HCV Ab Scrn w/Reflex to HCV PCR, Serum (01/03/2021 8:48 AM CDT) HCV Ab Screen, S Negative Negative 01/04/2021 8:29 AM CDT [facility] Comment:Mlkrhz-lt-yclqdz rat io is <1.00. Blood (Blood, Venous) 01/03/2021 8:48 AM CDT 01/04/2021 7:31 AM CDT Susie Gramajo P.A.-C. LAB MICROBIOLOGY - BLOOD ORDERABLES [facility] [address] [place] [address] [facility] Dept. of Laboratory Medicine and Pathology [address] [place] [address] * US Aorta (08/14/2015 9:52 AM [employer] M[employer] OPERATOR) Anatomical Region Laterality Modality Abdomen, Pelvis N/A Ultrasound 08/14/2015 9:52 AM [employer] M[employer] OPERATOR Addenda Addendum by Yoel Reyes M.D. on 08/14/2015 9:52 AM [employer] OPERATOR RAD^^^OW US Abdominal Aorta 08/14/2015 09:52:54 Addendum by Yoel Reyes M.D. on 08/14/2015 9:56 AM [employer] OPERATOR RAD^^^OW US Abdominal Aorta 08/14/2015 09:56:25 Impressions 08/15/2015 10:22 AM [employer] OPERATOR ??Normal caliber abdominal aorta and bilateral common iliac arteries. Narrative 08/15/2015 10:22 AM [employer] M[employer] OPERATOR EXAM: ??US Abdominal Aorta AGE: ??70 years old. GENDER: ??Male. INDICATION: ??pulsatile aorta, hx tobacco use COMPARISON: ??None. FINDINGS: ??Scattered atherosclerotic plaque Proximal abdominal aorta: 2.5 cm x 2.4 cm. Mid abdominal aorta: 2.1 cm x 2.1 cm. Distal abdominal aorta: 1.8 cm x 1.9 cm. Right common iliac artery: 1.3 cm x 1.4 cm. Left common iliac artery: 1.4 cm x 1.2 cm. Procedure Note Eric Haile M.D. / Yoel Reyes M.D. - 11/22/2016 EXAM: US Abdominal Aorta AGE: [age] years old. GENDER: Male. INDICATION: pulsatile aorta, hx tobacco use COMPARISON: None. FINDINGS: Scattered atherosclerotic plaque Proximal abdominal aorta: 2.5 cm x 2.4 cm. Mid abdominal aorta: 2.1 cm x 2.1 cm. Distal abdominal aorta: 1.8 cm x 1.9 cm. Right common iliac artery: 1.3 cm x 1.4 cm. Left common iliac artery: 1.4 cm x 1.2 cm. IMPRESSION: Normal caliber abdominal aorta and bilateral common iliac arteries. Jenni Baird R.V.T.SRadha IMG U S PROCEDURES from Last 3 Months or Most Recently Relevant to Health Maintenance Care Teams Placing Judge Relationship Specialty Start Date End Date Samara Lu, DELFINO, C.N.P. [address] [place] [phone] PCP - General Family Medicine 03/18/22
--- OUTSIDE RECORDS SUMMARY | 2023-12-04 13:06 | XMS_ITS | Continuity of Care Document ---
Author Name Unknown Organization [facility] Address [address] [place] [address] Phone Care Team Providers Care Database Architect Name Role Phone Delmer Luu MD Unavailable Unavailable Allergies, Adverse Reactions, Alerts Substance Reaction Status Criticality venom-honey bee Swelling Active No Informati on PROCAINE HCL Active No Information Medications Medication Instructions Dosage Effective Dates (start - stop) Status Comments HYDROXYCHLOROQUINE SULF 200 TB TAKE ONE TABLET BY MOUTH TWICE A DAY - PT NEEDS TO BE SEEN PRIOR TO NEXT REFILL - Active rosuvastatin 5 mg tablet take 1 tablet b y oral route every day 5 MG - Active magnesium 250 mg tablet 2 tabs daily - Act lolis Vitamin B-12 1,000 mcg tablet take 1 Tablet by Oral route every day 1 Tablet - Active Flonase Allergy Relief 50 mcg/actuation nasal spray,suspension inhale 1 puff by oral route every day 1 puff - Active tamsulosin 0.4 mg capsule take 1 capsule by oral route every day 1/2 hour following the same meal each day 0.4 MG - Active Vitamin D3 50 mcg (2,000 unit) tablet take 1 by Oral route every day 1 - Active vitamin E 670 mg (1,000 unit) capsule One daily - Active Fish Oil 1,000 mg capsule take 1 by Oral route 2 times every day - Active Restasis 0.05 % Eye Dropperette instill 1 drop by ophthalmic route every 12 hours into affected eye(s) 1.00 drop - Active Procedures Procedure Date Office/Outpatient Visit, Est Routine Venipuncture Specimen Handling Rbc Sed Rate, Automated Assay Of Creatinine Assay Alkaline Phosphatase Transferase (Ast) (Sgot) Alanine Amino (Alt) (Sgpt) Assay Of Urea Nitrogen Assay Of Blood/Uric Acid CReactive Protein Dna Antibody, Single Strand Dna Antibody, [place] Nuclear Antigen Antibodies Complete Cbc WAuto Diff Wbc Office/Outpatient Visit, Est Routine Venipuncture Specimen Handling Assay Of Creatinine Assay Alkaline Phosphatase Transferase (Ast) (Sgot) Alanine Amino (Alt) (Sgpt) Assay Of Urea Nitrogen Assay Of Blood/Uric Acid CReactive Protein Dna Antibody, Single Strand Dna Antibody, [place] Nuclear Antigen Antibodies Complete Cbc WAuto Diff Wbc Office/Outpatient Visit, Est Routine Venipuncture Specimen Handling Assay Of Creatinine Assay Alkaline Phosphatase Transferase (Ast) (Sgot) Alanine Amino (Alt) (Sgpt) Assay Of Urea Nitrogen Assay Of Blood/Uric Acid CReactive Protein Dna Antibody, Single Strand Dna Antibody, [place] Nuclear Antigen Antibodies Vitamin D 25 Hydroxy Complete Cbc WAuto Diff Wbc Office/Outpatient Visit, Est Routine Venipuncture Specimen Handling Assay Of Creatinine Assay Alkaline Phosphatase Transferase (Ast) (Sgot) Alanine Amino (Alt) (Sgpt) Assay Of Urea Nitrogen Assay Of Blood/Uric Acid CReactive Protein Dna Antibody, Single Strand Dna Antibody, [place] Nuclear Antigen Antibodies Vitamin D 25 Hydroxy Complete Cbc WAuto Diff Wbc Office/Outpatient Visit, Est Routine Venipuncture Specimen Handling Assay Of Creatinine Assay Alkaline Phosphatase Transferase (Ast) (Sgot) Alanine Amino (Alt) (Sgpt) Assay Of Urea Nitrogen Assay Of Blood/Uric Acid CReactive Protein Dna Antibody, Single Strand Dna Antibody, [place] Nuclear Antigen Antibodies Complete Cbc WAuto Diff Wbc Office/Outpatient Visit, Est Routine Venipuncture Specimen Handling Assay Of Creatinine Assay Alkaline Phosphatase Transferase (Ast) (Sgot) Alanine Amino (Alt) (Sgpt) Assay Of Urea Nitrogen Assay Of Blood/Uric Acid CReactive Protein Dna Antibody, Single Strand Dna Antibody, [place] Nuclear Antigen Antibodies Complete Cbc WAuto Diff Wbc Office/Outpatient Visit, Est Routine Venipuncture Specimen Handling Assay Of Creatinine Assay Alkaline Phosphatase Transferase (Ast) (Sgot) Alanine Amino (Alt) (Sgpt) Assay Of Urea Nitrogen Assay Of Blood/Uric Acid CReactive Protein Dna Antibody, Single Strand Dna Antibody, [place] Nuclear Antigen Antibodies Complete Cbc WAuto Diff [...] Protein Dna Antibody, Single Strand Dna Antibody, [place] Nuclear Antigen Antibodies Complete Cbc WAuto Diff Wbc Office/Outpatient Visit, Est Routine Venipuncture Rbc Sed Rate, Nonautomated CReactive Protein Dna Antibody, Single Strand Dna Antibody, [place] Nuclear Antigen Antibodies Office/Outpatient Visit, Est Routine [...] Protein Dna Antibody, Single Strand Dna Antibody, [place] Nuclear Antigen Antibodies Office/Outpatient Visit, Est Routine [...] Diagnoses Date Provider Providers Copied on Encounter Office/Outpa tient Visit, Est [facility] , [address], [place], [address], [place] tel:[phone] [facility] , Follow Up of Sjogren's syndrome (chief complaint) Sjogren's syndromeSpin al stenosis, lumbar region with neurogenic claudication Radiculopath y, cervical regionSciati caLong term (current) use of non-steroida l anti-inflamm atories (NSAID) Apr-3 0-202 4 Jus Dowell. [facility] [address], [place], [address], [place]. tel:[phone] Referring Provider: Delmer Marcum, [facility] [address], [place], [address]. tel:[phone] [facility] , [address], [place], [address], [place] tel:[phone] [facility] , No Information 4 Jus Dowell. [facility] [address], [place], [address], [place]. tel:[phone] Office/Outpa tient Visit, Est [facility] , [address], [place], [address], [place] tel:[phone] [facility] , Follow Up of Sjogren's syndrome (chief complaint) Sjogren's syndromeSpin al stenosis, lumbar region with neurogenic claudication Radiculopath y, cervical regionSciati caLong term (current) use of non-steroida l anti-inflamm atories (NSAID) 3 Jus Dowell. [facility] [address], [place], [address], [place]. tel:[phone] Referring Provider: Delmer Marcum, [facility] [address], [place], [address]. tel:[phone] Office/Outpa tient Visit, Est [facility] , [address], [place], [address], [place] tel:[phone] [facility] , Follow Up of Sjogren's syndrome (chief complaint) Sjogren's syndromeSpin al stenosis, lumbar region with neurogenic claudication Radiculopath y, cervical regionSciati caAbnormal results of liver function studiesLong term (current) use of non-steroida l anti-inflamm atories (NSAID) 3 Jus Dowell. [facility] [address], [place], [address], [place]. tel:[phone] Referring Provider: Delmer Marcum, [facility] [address], [place], [address]. tel:[phone] Office/Outpa tient Visit, Est [facility] , [address], [place], [address], [place] tel:[phone] [facility] , Follow Up of Sjogren's syndrome (chief complaint) Abnormal results of liver function studiesSjogr en's syndromeSpin al stenosis, lumbar region with neurogenic claudication Radiculopath y, cervical regionLong term (current) use of non-steroida l anti-inflamm atories (NSAID)Vitam in B12 deficiencySc iatica 3 Jus Michele [facility] [address], [place], [address], [place]. tel:[phone] Referring Provider: Delmer Marcum, [facility] [address], [place], [address]. tel:[phone] Office/Outpa tient Visit, Est [facility] , [address], [place], [address], [place] tel:[phone] [facility] , Follow Up of Sjogren's syndrome (chief complaint) Sjogren's syndromeSpin al stenosis, lumbar region with neurogenic claudication Radiculopath y, cervical regionLong term (current) use of non-steroida l anti-inflamm atories (NSAID)Abnor mal results of liver function studies 2 Jus Michele [facility] [address], [place], [address], [place]. tel:[phone] Referring Provider: Delmer Marcum, [facility] [address], [place], [address]. tel:[phone] Office/Outpa tient Visit, Est [facility] , [address], [place], [address], [place] tel:[phone] [facility] , Follow Up of Sjogren's syndrome (chief complaint) Sjogren's syndromeSpin al stenosis, lumbar region with neurogenic claudication Radiculopath y, cervical regionLong term (current) use of non-steroida l anti-inflamm atories (NSAID) Jus Dowell. [facility] [address], [place], [address], [place]. tel:[phone] Referring Provider: Delmer Marcum, [facility] [address], [place], [address]. tel:[phone] Office/Outpa tient Visit, Est [facility] , [address], [place], [address], [place] tel:[phone] [facility] , Follow Up of Sjogren's (chief complaint)Fo llow Up of Osteoarthrit is (chief complaint) Spinal stenosis, lumbar region with neurogenic claudication Radiculopath y, cervical regionSicca syndrome with other organ involvementL selvin term (current) use of non-steroida l non-inflam (NSAID) 9 Jus Dowell. [facility] [address], [place], [address], [place]. tel:[phone] Referring Provider: Delmer Marcum, [facility] [address], [place], [address]. tel:[phone] Office/Outpa tient Visit, Est [facility] , [address], [place], [address], [place] tel:[phone] [facility] , Follow Up of Sjogren's (chief complaint)Fo llow Up of Osteoarthrit is (chief complaint) Sicca syndrome with other organ involvementS pamela stenosis, lumbar region with neurogenic claudication Radiculopath y, cervical regionLong term (current) use of non-steroida l non-inflam (NSAID) 9 Jus Dowell. [facility] [address], [place], [address], [place]. tel:[phone] Referring Provider: Delmer Marcum, [facility] [address], [place], [address]. tel:[phone] Office/Outpa tient Visit, Est [facility] , [address], [place], [address], [place] tel:[phone] [facility] , Follow Up of Sjogren's (chief complaint) Sicca syndrome with other organ involvementS pamela stenosis, lumbar region with neurogenic claudication [facility] use of NSAID 9 Jus Dowell. [facility] [address], [place], [address], [place]. tel:[phone] Referring Provider: Delmer Marcum, [facility] [address], [place], [address]. tel:[phone] Office/Outpa tient Visit, Est [facility] , [address], [place], [address], [place] tel:[phone] [facility] , Follow Up of Sjogren's (chief complaint) Sjogren's syndromePain in jointSpinal stenosis, lumbar region with neurogenic claudication Jus Dowell. [facility] [address], [place], [address], [place]. tel:[phone] Referring Provider: Delmer Marcum, [facility] [address], [place], [address]. [phone] Office/Outpa tient Visit, Est [facility] , [address], [place], [address], [place] [phone] [facility] , Follow Up of Sjogren's (chief complaint) Sjogren's syndromeDiar miguel angel, unspecified Jus Dowell. [facility] [address], [place], [address], [place]. tel:[phone] Referring Provider: Delmer Marcum, [facility] [address], [place], [address]. tel:[phone] Office/Outpa tient Visit, Est [facility] , [address], [place], [address], [place] tel:[phone] [facility] , Follow Up of Sjogren's (chief complaint) Sjogren's syndromeDiar miguel angel, unspecifiedO bstructive sleep apnea Jus Dowell. [facility] [address], [place], [address], [place]. tel:[phone] Referring Provider: Delmer Marcum, [facility] [address], [place], [address]. tel:[phone] Office/Outpa tient Visit, Est [facility] , [address], [place], [address], [place] tel:[phone] [facility] , Follow Up of Sjogren's (chief complaint) Sjogren's syndromeDiar rheaDysphagi a, oral phase 5 Jus Dowell. [facility] [address], [place], [address], [place]. tel:[phone] Referring Provider: Delmer Marcum, [facility] [address], [place], [address]. tel:[phone] Office/Outpa tient Visit, Est [facility] , [address], [place], [address], [place] tel:[phone] [facility] , Sjogren's (chief complaint) Sicca syndromeDiar miguel angel 4 Jus Dowell. [facility] [address], [place], [address], [place]. tel:[phone] Referring Provider: Delmer Marcum, [facility] [address], [place], [address]. tel:[phone] Office/Outpa tient Visit, Est [facility] , [address], [place], [address], [place] tel:[phone] [facility] , Sjogren's (chief complaint) Sicca syndromeDiar rheaTherapeu tic Drug Monitoring 3 Jus Michele [facility] [address], [place], [address], [place]. tel:[phone] Referring Provider: Delmer Marcum, [facility] [address], [place], [address]. tel:[phone] Office/Outpa tient Visit, Est [facility] , [address], [place], [address], [place] tel:[phone] [facility] , Sjogren's (chief complaint) Sicca syndromeTher apeutic Drug Monitoring 2 Jus Dowell. [facility] [address], [place], [address], [place]. tel:[phone] Referring Provider: Delmer Marcum, [facility] [address], [place], [address]. tel:[phone] [facility] , [address], [place], [address], [place] tel:[phone] [facility] , No Information 2 Isabelle Bates. [facility] [address], [place], [address], [place]. tel:[phone] Family History Family Member Type Diagnosis Age At Onset No Information Immunizations Vaccine Date Status Comments COVID-19 Pfizer administered Source: Othe r Provider COVID-19 Pfizer administered Source: Othe r Provider Payers Payer name Insurance type Covered libertarian ID Authornupura tiignacio(s) [facility] Medicare Advantage/Plat inum Blue [id number] Social History Type Description Quantity Date Captured Comments Alcohol Use Details Caffeine Use Details coffee 6-8 cups a day per day Tobacco Use Status Ex-heavy cigarette smoker Smoking Status Former smoker Non-Smoking Tobacco Use Details : No Details Available : No Details Available Sex Male Vital Signs Date / Time: Height Weight BMI Pulse Rate Blood Pressure Temperature Respiratory Rate Body Surface Area Head Circumference Head Circ. Percentile Wt./Deandre. Percentile BMI percentile Pulse Ox Inhaled Ox 1:57 PM 65.25 in 77.111 kg (170.00 lbs) 28.0 7 kg/m eter (2) 122/62 mm[Hg] 98.10 F Chief Complaint And Reason For Visit From encounter dated '11/18/2023 13:45'. Follow Up of Sjogren's syndrome (chief complaint) Reason For Referral Reason For Referral No Information Plan Of Treatment Date Type Action Status Goal Tobacco cessation counseling completed Appointment Billy James BOOKED History Of Present Illness Encounter Date Complaint [...] Sjogren's Functional Status Date Functional Assessmen t Pain Score 5/10 Instructions Date Instruction Additional Infor tammy He is doing very wel l currently with his Sjogren syndrome. I did not recommend any change in the Plaquenil. Related to Sjogren's syndrome He has had a nice re sponse to treatment at [facility] [place] that has included 2 courses of epidural injections. He is much more active today compared to the last time I saw him. He will continue to follow there for his back issues. Related to Spinal stenosis, lumbar region with neurogenic claudication This is not a major problem for him currently. He was surprised I even asked about it today. Related to Radiculopathy, cervical region See discussion above. Related to Sciatica He only uses ibuprof en infrequently now as needed. I should note also that he does have Lyrica available for use although he does not require it currently. 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 Related to Radiculopathy, cervical region See discussion above. Related to Sciatica I encouraged him to continue the sulindac, at least until I see results of the MRI scan of his back. I suspect that his back symptoms would actually be worse without it. 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 It does seem to be somewhat improved today compared to the last time I saw him since he has been able to take the hydroxychloroquine more regularly. I recommended continuing that at his twice a day dosing. He will also continue to control the diarrhea with relatively infrequent use of pyth-[id number] Imodium. Related to Sjogren's syndrome This is currently hi s most limiting [...] stenosis, lumbar region with neurogenic claudication He does not have sym ptoms to suggest cervical radiculopathy at this time. Related to Radiculopathy, cervical region See discussion above. Related to Sciatica When I saw him on 06/2022, his [...] actually be worse without it. 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 Related to Sciatica The vitamin B12 defi ciency is more common in the setting of Sjogren syndrome. We will check a vitamin B12 level today on his current dose of replacement. Related to Vitamin B12 deficiency When I saw him on 06/2022, his liver enzymes were essentially back to normal???ALT of 27 with normal up to 40 and AST of 39 with normal up to 34. I will recheck these today. Related to Abnormal results of liver function studies He developed a signi ficant rash this last summer. He is insistent that he actually had 2 different rashes, one on his back and 1 on his arms. Both slowly resolved and were essentially gone by the time he was seen at the [facility]. 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 Related to Sjogren's syndrome He has a history of lumbar spinal [...] stenosis, lumbar region with neurogenic claudication He does not have sym ptoms to suggest cervical radiculopathy at this time. Related to Radiculopathy, cervical region I encouraged him to continue the sulindac, at least until I see results of the MRI scan of his back. I suspect that his back symptoms would actually be worse without it. Related to [facility] (current) use of non-steroidal anti-inflammatories (NSAID) He had mildly elevat ed liver enzymes the last time I saw him a year ago. He has altered alcohol intake since then. These will be rechecked today. Related to Abnormal results of liver function studies His symptoms of Sjog dawn's syndrome are stable. He does not seem to be developing any severe complications of this condition. I do not think he needs disease modifying therapy for this at this point. 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 Related to Radiculopathy, cervical region He will have routine laboratories today for monitoring medications and disease. 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 He has virtually no symptoms related to these issues today. Related to Spinal stenosis, lumbar region with neurogenic claudication See discussion above. Related to Radiculopathy, cervical region He will have routine laboratories today for monitoring medications and disease. Related to [facility] (current) use of non-steroidal anti-inflammatories (NSAID) I [...] anticipate changing his sulindac dose. Related to [facility] (current) use of non-steroidal non-inflam (NSAID) He [...] laboratories for monitoring his medication. 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 Related to Sjogren's syndrome The cause of his kemi rrhea is [...] discontinuing any of these. Related to Diarrhea See discussion above. Related to Dysphagia, oral phase Although there has b een no obvious flare in his arthritis off of the Plaquenil, he certainly has significant symptoms of his Sjogren's syndrome, mainly the issues with his eyes and thick oral secretions that make it sometimes difficult for him to swallow. 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 I also recommended followup with an research scientist regarding the difficulty swallowing. I also reviewed conservative measures for managing the dry eyes and decreased salivary secretions. I did not recommend Evoxac at this time. Related to Sjogren's syndrome Assessments Type Assessment Date assessment Sjogren's syndrome assessment Spinal stenosis, lumbar region w ith neurogenic claudication assessment Radiculopathy, cervical region A assessment Sciatica assessment [facility] (current) use of non-steroidal anti-inflammatories (NSAID) Mental Status Date Cognitive Assessment N/A Patient Care Teams Name Effective Dates (start - stop) Status Members No Information
--- OUTSIDE RECORDS SUMMARY | 2023-12-04 13:06 | XMS_ITS | Encounter Summary ---
Author Name Unknown Organization [facility] Address [address] [place] [id number] Care Team Providers Care Shear Tender Name Role Phone Samara Lu APRN, C.N.P. [facility] Care [facility] Reason for Referral * Outpatient (Routine) - Closed Specialty Diagnoses / Procedures Referred By Contac t Referred To Contact Radiation Oncology Sharifa Mann M.D. [address] [place] [phone] Thomas Pino M.D. [address] [place] [phone] Referral ID Status Reason Start Date Expiration Date Visits Re quested Visits Authorized [id number] Closed 11/14/2023 05/15/2025 1 1 Scheduling Instructions Please schedule before sim same day, and after the marker/spacer procedure. Reason for Visit * Outpatient (Routine) - Closed Specialty Diagnoses / Procedures Referred By Contac t Referred To Contact Radiation Oncology Sharifa Mann M.D. [address] [place] [phone] Thomas Pino M.D. [address] [place] [phone] Referral ID Status Reason Start Date Expiration Date Visits Re quested Visits Authorized [id number] Closed 11/14/2023 05/15/2025 1 1 Encounter Details Date Type Department Care Team (Latest Contact Info) Description 11/27/2023 10:00 AM CDT - 11/28/2023 5:40 PM CDT Hospital Encounter Department of Radiation Oncology in [place], [place] [address] [place] [phone] Thomas Pino M.D. [address] [place] [address] Primary Malignant Neoplasm Of Prostate (HCC) (Primary Dx) Social History Tobacco Use Types Packs/Day Years [...] week 04/12/2022 How often do you attend [facility] or synagogue services? More than 4 times per year 04/12/2022 Do you belong to any clubs o r organizations such as jehovah's witness groups, unions, fraternal or athletic groups, or [...] Date Recorded PHQ-2 Score 0 10/11/2022 [facility] Occupat ional [facility] - Occupational Stress Questionnaire Answer Date Recorded [...] place to sleep or slept in a fpc (including now)? 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 documented as of this encounter Last Filed Vital Signs Vital Sign Reading Time Taken Comments Blood Pressure 140/56 11/27/2023 10:19 AM CDT Pulse 90 11/27/2023 10:19 AM CDT Temperature 36.4 ??C (97.6 ??F) 11/27/2023 10:19 AM C DT Respiratory Rate - - Oxygen Saturation - - Inhaled Oxygen Concentration - - Weight 76 kg (167 lb 8.8 oz) 11/27/2023 10:19 AM CDT Height - - Body Mass Index 26.93 10/25/2022 10:48 AM CDT documented in this encounter Medications at Time of Discharge Medication Sig Dispensed Refills Start Date End Date cholecalciferol, vitamin D3, 25 mcg (1,000 Unit) tablet Take 2,000 Units by mouth. 08/15/2022 cyanocobalamin (vitamin B-12) 1,000 mcg tabletIndications:Defi ciency Vitamin B12 Take 1 tablet (1,000 mcg total) by mouth daily. 90 tablet 1 05/11/2022 cycloSPORINE (Restasis) 0.05 % ophthalmic emulsionIndications:Sj ogren's (Sicca) Syndrome (HCC) Administer 1 drop into both eyes 2 (two) times a day. 90 each 3 01/03/2021 fluticasone propionate (FLONASE) 50 mcg/actuation nasal spray Administer 2 sprays into each nostril daily. hydrOXYchloroQUINE (PLAQUENIL) 200 mg tablet Take 200 mg by mouth daily. 10/15/2022 magnesium 250 mg tablet Take 250 mg by mouth every morning before breakfast. omega 1-csg-dlw-fish oil (fish oil) 100-160-1,000 mg capsule Take 1 capsule by mouth 2 (two) times a day. 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 20 tablet 05/30/2023 pregabalin (LYRICA) 75 mg capsule TAKE ONE CAPSULE BY MOUTH AT BEDTIME FOR 7 DAYS THEN TAKE ONE CAPSULE BY MOUTH TWICE A DAY 06/03/2023 rosuvastatin (CRESTOR) 5 mg tabletIndications:Hype rlipidemia Mixed Take 1 tablet (5 mg total) by mouth daily. 90 tablet 3 12/06/2022 tamsulosin (FLOMAX) 0.4 mg 24 hr capsule TAKE ONE CAPSULE BY MOUTH TWICE A DAY 180 capsule 3 02/05/2023 triamcinolone (KENALOG) 0.1 % cream APPLY TO AFFECTED AREA(S) TOPICALLY 1-2 TIMES DAILY NEEDED. AVOID FACE AND GROIN. 30 g 04/17/2022 VITAMIN E ACETATE ORAL Take 1 tablet by mouth daily. documented as of this encounter Progress Notes * Taylor Beasley APRN, C.N.P., D.N.P. - 11/27/2023 10:00 AM CDT SUBJECTIVE DIAGNOSIS 1. Primary Malignant Neoplasm Of Prostate (HCC) SUPERVISED BY: Thomas Pino M.D. ([id number]) HISTORY OF PRESENT ILLNESS Mr. Billy James is a 78-year-old male with low risk, stage I (cT2a, cN0, cM0, PSA: 6.5, Grade Group: 1) adenocarcinoma of the prostate. He returns today for CT simulation for SBRT after prostatefiducial marker and rectal spacer placement. His oncologic history is as follows: Oncology History Primary Malignant Neoplasm Of Prostate (HCC) 12/2020 Other 01/03/2021: PSA 7.2 ng/mL 02/01/2021: PSA 7.7 ng/mL 05/15/2021: PSA 6.5 ng/mL 02/09/2021 Other CAIO: Perianal area intact without lesions or visible hemorrhoids. No fissures or fistulas. Good sphincter tone, no masses. Prostate is symmetrical, smooth, slightly enlarged, non-tender and without nodules. Seminal vesicles are non- palpable. Approximate size is 35 grams. 06/18/2021 Critical Imaging MR Prostate PROSTATE: Volume: 22cc (PSA density 0.35) Exam quality: Good. Peripheral zone: Focal finding, as below Transition zone: Focal finding, as below Lesion # 1 Size: 1.4 x 0.9cm, 0.94cc Zone: Transition zone Location: Right anterior at apex. T2WI: Circumscribed, homogenous moderate hypointense focus/mass confined to prostate and <1.5 cmin greatest dimension (T2WI score 4) DWI: Moderate diffusion restriction. (ADC: 545, Focal markedly hypointense on ADC and markedly hyperintense on high b-value DWI; <1.5cm in greatest dimension) (DWI score 4) DCE: Positive. Overall category: PIRADS 4- High (clinically significant cancer is likely to be present). Lesion # 2 Size: 2 x 0.2cm, 0.34cc Zone: Peripheral zone Location: Left posterior lateral at midgland. T2WI: Circumscribed, homogenous moderate hypointense focus/mass confined to prostate and <1.5 cmin greatest dimension (T2WI score 4) DWI: Moderate diffusion restriction. (ADC: 145, Focal markedly hypointense on ADC and markedly hyperintense on high b-value DWI; <1.5cm in greatest dimension) (DWI score 4) DCE: Negative. Overall category: PIRADS 3- Intermediate (the presence of clinically significant cancer is equivocal). LOCAL STAGING: Capsule: Intact. Neurovascular bundle invasion: Absent Seminal vesicles invasion: Absent Other organ invasion: Absent LYMPH NODES: Negative for suspicious lymph node(s). Right common iliac and bilateral femoral subcentimeter nodes, intermediate. BONES: Negative for suspicious bone lesion(s). 07/05/2021 Biopsy/Pathology FINAL DIAGNOSIS A. Right prostate, needle core biopsies: Prostatic tissue with no diagnostic abnormalities. B. Left prostate, needle core biopsies: Prostatic adenocarcinoma, Ada's grade 3+3=6, involving three cores and approximately 20% of tissue examined. Negative for perineural invasion or extracapsular extension. 3/12 positive cores 07/12/2021 Clinical Stage Staging form: Prostate, AJCC 8th Edition - Clinical stage from 07/12/2021: Stage I (cT2a, cN0, cM0, PSA: 6.5, Grade Group: 1) Histopathologic type: Adenocarcinoma, NOS Prostate specific antigen (PSA) range: Less than 10 [place] primary pattern: 3 Ada secondary pattern: 3 Histologic grading system: 5 grade system Number of biopsy cores examined: 16 Number of biopsy cores positive: 3 Location of positive needle core biopsies: One side 09/2021 Other 09/27/2021: PSA 8.2 ng/mL 01/28/2022: PSA 7.1 ng/mL 05/20/2022: PSA 7.1 ng/mL 09/17/2022: PSA 7.3 ng/mL 01/17/2023: PSA 8.2 ng/mL 05/23/2023: PSA 8.7 ng/mL 05/16/2023 Critical Imaging MR Prostate PROSTATE: Volume: 28.9cc (PSA density 0.28) Exam quality: Good. Peripheral zone: Lesion #2 (PI-RADS 4) as described below. The previously described PI-RADS 3 lesion in the left lateral posterior peripheral zone shows no significant restricted diffusion, favored PI-RADS 2 (series 4 image 19). 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 This lesion was also marked as Lesion #3 on DynaCAD. Transition zone: Lesion #1 (PI-RADS 5) as described below. Lesion # 1 Size: 1.7 x 0.5 x 1.2cm, 1.03cc Zone: Transition zone Location: Right anterior at base to mid gland, with involving left anterior transition zone. T2WI: Lenticular or non-circumscribed, homogeneous, moderately hypointense, and greater than 1.5cm in greatest dimension. (T2WI score 5) DWI: Marked diffusion restriction. (ADC: 700, Focal markedly hypointense on ADC and markedly hyperintense on high b-value DWI; greater than 1.5cm in greatest dimension) (DWI score 5) DCE: Positive. Overall category: PIRADS 5- Very high (clinically significant cancer is highly likely to be present). Lesion # 2 Size: 0.4 x 0.2 x 0.6cm, 0.05cc Zone: Peripheral zone Location: Left posterior medial at midgland. T2WI: Circumscribed, homogenous moderate hypointense focus/mass confined to prostate and <1.5 cmin greatest dimension (T2WI score 4) DWI: Moderate diffusion restriction. (ADC: 930, Focal (discrete and different from the background) hypointense on ADC and/or focal hyperintense on high b- value DWI) (DWI score 3) DCE: Positive. Overall category: PIRADS 4- High (clinically significant cancer is likely to be present). LOCAL STAGING: Capsule: Intact. Neurovascular bundle invasion: Absent Seminal vesicles invasion: Absent Other organ invasion: Absent LYMPH NODES: Negative for suspicious lymph node(s). BONES: Negative for suspicious bone lesion(s). 06/26/2023 Biopsy/Pathology FINAL DIAGNOSIS A: Right prostate, core biopsies: Benign prostate tissue with focal acute and chronic inflammation. B: Left prostate, core biopsies: Prostate adenocarcinoma, Ada grade 3+3 (grade group 1) involving 1 of 7 cores/core-like fragments, 2 mm in greatest linear dimension and involving 5% of the submitted tissue. 08/02 positive cores 10/23/2023 Other PSA 10.2 ng/mL 11/03/2023 Other Patient has been on active surveillance since [address] Ram, Urology. Due torising PSA, he recommended Radiation Oncology opinion. 11/20/2023 Surgery and Procedures US prostate fiducial marker placement with hydrogel spacer. 12/08/2023 - Radiation Therapy Radiation Therapy Treatment Details (Noted on 11/14/2023) Site: Prostate Technique: No technique specified Goal: Curative Planned Treatment Start Date: 12/08/2023 INTERVAL HISTORY: The patient was seen and examined today with Dr. Pino. The patient reports doing well overall. He reports the procedure last week went well. He denies anypain in that area. He denies any significant changes to urination or bowel movements. His ECOG performance status is 0. PATIENT COMPLETED QUESTIONNAIRES: I-PSS I-PSS Urinary Symptoms Score: 13 I-PSS Quality of Life Score: 3 IIEF-15 Erectile Function:08/19 Orgasmic Function:0/10 Sexual Desire:2/10 [place] Satisfaction: 0/15 Overall satisfaction:8/10 Total Score:11/75 REVIEW OF SYSTEMS Review of systems was negative except as documented above. PATIENT REPORTED SYMPTOM SCREEN: FATIGUE (Scale: 0 = no fatigue; 10 = worst fatigue you can imagine): 0 PAIN (Scale: 0 = no pain; 10 = worst pain you can imagine): 0 OVERALL QUALITY OF LIFE (Scale: 0 = as bad as can be; 10 = as good as can be): 10 OBJECTIVE BP 140/56 (BP Location: Right arm, Patient Position: Sitting, Cuff Size: Regular) Pulse 90 Temp36.4 ??C (Temporal) Wt 76 kg BMI 26.93 kg/m?? PHYSICAL EXAMINATION General: Alert and oriented, in no apparent distress. ASSESSMENT / PLAN #1 Stage I (cT2a, cN0, cM0, PSA: 6.5, Grade Group: 1) adenocarcinoma of the prostate diagnosed withbiopsy on July 05, 2021 and managed with active surveillance #2 MRI of the prostate on May 16, 2023 with a PI-RADS 5 lesion and a PI-RADS 4 lesion #3 Repeat biopsy on June 26, 2023 revealed [place] 3 + 3 disease in 1 of 13 cores, PSA rise to 10.2 ng/mL on October 23, 2023 I had a discussion with the patient regarding his prostate cancer diagnosis. As previously discussed with Drs. Pino and Johnathan, we reviewed the plan for SBRT to the prostate in 5 fractions delivered every other day. The patient has already proceeded with prostate fiducial marker and rectal spacer placement. He is doing well with no lingering pain following that procedure. I discussed the logistics as well as reviewed the acute side effects of radiotherapy. For a complete listing of these, please see the consultation note from Dr. Mann from November 14, 2023. The patient was educated on the rectal emptying and bladder filling protocol prior to each treatment. His questions were answered to his verbalized satisfaction. After discussion, the patient verbally stated that he would like to proceed with radiation treatment. Unfortunately, our MRI planning scan did not get coordinated with his CT simulation scan today. We will plan to bring him back early next week when those are able to be coordinated same day. He will then likely start treatment approximately [address] Pino also met with the patient today, please see his attestation for details. The patient was provided with our contact information. He will contact us with questions or concerns. He verbally expressed his understanding of the plan. EDUCATION: Ready to learn, no apparent learning barriers were identified; learning preferences include listening. Explained diagnosis and treatment plan; patient expressed understanding of the content. CONSENT: Discussed the risks, benefits, alternatives, and the necessity of other members of the healthcare team participating in the procedure. All questions answered and consent given. I personally spent 25 minutes in care of the patient today. Time includes both non face to face andface to face patient care. Signed by: Taylor Beasley APRN, C.N.P., Sanjay.[email or web address] 11/27/2023 10:52 AM CDT [facility] [address] [place] [address] Associated attestation - Thomas Pino M.D. - 11/28/2023 5:40 PM CDT I saw and evaluated the patient and participated in the horowitz portions of the service. I reviewed thedocumentation of Taylor Beasley C.N.P. and agree with the findings and plan. Billy James is a 78 y.o. male was diagnosed with low risk, stage I (cT2a, cN0, cM0, PSA: 6.5, Grade Group: 1) adenocarcinoma of the prostate with a biopsy on July 05, 2021 and had [place] 3 + 3 disease in 3 of 12 cores. He was managed with active surveillance by Dr. Ram. An MRI of theprostate on May 16, 2023 revealed PI-RADS 5, 1.7 cm lesion in the right anterior crossing over into the left anterior at the base to midgland and a PI-RADS 4, 0.6 cm lesion in the left posterior medial at the midgland with disease confined to the prostate. PSA on May 23, 2023 was 8.7 ng/mL.Repeat biopsy on June 26, 2023 was positive at only 1 of 13 cores again for Ada 3 + 3 disease. PSA on October 23, 2023 was 10.2 ng/mL. I saw him in consultation on November 14, 2023. He returns for a CT simulation. The patient appears well on exam. ASSESSMENT / PLAN #1 Stage I (cT2a, cN0, cM0, PSA: 6.5, Grade Group: 1) adenocarcinoma of the prostate diagnosed withbiopsy on July 05, 2021 and managed with active surveillance #2 MRI of the prostate on May 16, 2023 with a PI-RADS 5 lesion and a PI-RADS 4 lesion #3 Repeat biopsy on June 26, 2023 revealed [place] 3 + 3 disease in 1 of 13 cores, PSA rise to 10.2 ng/mL on October 23, 2023 I again recommend stereotactic body radiotherapy to a dose of 36.25 Gy to 40 Gy in 5 fractions. Thepatient had a SpaceOAR and fiducial placement on November 20, 2023. He tolerated this without difficulty.SBRT is indicated so as to spare high radiation dose to the adjacent bowel, bladder, rectum, and hips. Unfortunately, the planning MRI that was ordered was not scheduled. I apologized to the patient. I explained that the MRI is best performed on the same day as the CT simulation. Kindly agreed to return for a CT simulation and planning MRI next week. We will schedule this in the afternoon because the patient has many care duty responsibilities with his in the mornings. He verbalized satisfaction with this plan. I have spent 10 minutes caring for this patient including ftvt-rl-ptyn and xem-xjcm-iw-face time. Signed by: Thomas Pino M.D. 11/28/23 5:40 PM CDT [facility] [place] documented in this encounter Plan of Treatment Upcoming Encounters Date Type Department Care Team (Late st Contact Info) Description 12/08/2023 8:45 AM CDT Office Visit Department of Urology in [place], [place] [address], [place] [address] Heladio Ram M.D. [address] [place] [phone] 12/16/2023 1:45 PM CDT Appointment Department of Radiation Oncology in [place], [place] [address] [place] [address] Thomas Pino M.D. [address] [place] [address] Scheduled Referrals Name Type Priority Associated Diagnoses Order Schedule Radiation Oncology office visit (clinic) Outpatient Referral Routine Once for 1 Occurrences starting 11/27/2023 until 11/27/2023 documented as of this encounter Visit Diagnoses Diagnosis Primary Malignant Neoplasm Of Prostate (HCC)- Primary documented in this encounter Additional Health Concerns Assessment Noted Time PHQ-9 Depression Total Score: 0 08/14/19 16 8:27 AM BANKING REPRESENTATIVE documented as of this encounter Care Teams Shear Tender Relationship Specialty Start Date End Date Samara Lu APRN, C.N.P. [address] [place] [phone] PCP - General Family Medicine 03/18/22 documented as of this encounter
--- OUTSIDE RECORDS SUMMARY | 2023-12-04 13:06 | XMS_ITS | Encounter Summary ---
Author Name Unknown Organization [facility] Address [address] [place] [address] Care Team Providers Care Die Grinder Name Role Phone Samara Lu APRN, C.N.P. Primary Care Provi adry Reason for Referral * Outpatient (Routine) - Closed Specialty Diagnoses / Procedures Referred By Contac t Referred To Contact Diagnoses Pain Heel Right Procedures DX Calcaneus Right 2 Views Sue Robert APRN, C.N.P., D.N.P. [address] [place] [phone] [facility] Referral ID Status Reason Start Date Expiration Date Visits Re quested Visits Authorized [id number] Closed 11/25/2023 11/24/2024 1 1 Reason for Visit * Outpatient (Routine) - Closed Specialty Diagnoses / Procedures Referred By Contac t Referred To Contact Diagnoses Pain Heel Right Procedures DX Calcaneus Right 2 Views Sue Robert APRN, C.N.P., D.N.P. [address] [place] [phone] [facility] Region Referral ID Status Reason Start Date Expiration Date Visits Re quested Visits Authorized [id number] Closed 11/25/2023 11/24/2024 1 1 Encounter Details Date Type Department Care Team (Latest Contact Info) Description 11/25/2023 7:09 PM CDT - 11/25/2023 11:59 PM CDT Hospital Encounter Department of Radiology in [place], [place] [address] [phone] Sue Robert, DELFINO, C.N.P., D.N.P. [address] [address] Pain Heel Right Discharge Disposition: Home or Self Care Social History Tobacco Use Types Packs/Day Years [...] How often do you attend chur or judaism services? More than 4 times per year 04/12/2022 Do you belong to any clubs o r organizations such as baptist groups, unions, fraternal or athletic groups, or [...] Answer Date Recorded PHQ-2 Score 0 10/11/2022 [facility]ational Stress Questionnaire Answer Date [...] place to sleep or slept in a penitentiary (including now)? 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 omega 3-pes-tmj-fish oil (fish oil) 100-160-1,000 mg capsule Take 1 capsule by mouth 2 (two) times a day. 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 documented as of this encounter Plan of Treatment Upcoming Encounters Date Type Department Care Team (Late st Contact Info) Description 12/08/2023 8:45 AM CDT Office Visit Department of Urology in [place], [place] [address] [place] [phone] Heladio Ram M.D. [address] [place] [phone] 12/16/2023 1:45 PM CDT Appointment Department of Radiation Oncology in [place], [place] [address] [place] [phone] Thomas Pino M.D. 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 [address] [phone] PCP - General Family Medicine 03/18/22 documented as of this encounter
--- OUTSIDE RECORDS SUMMARY | 2023-12-04 13:06 | XMS_ITS | Encounter Summary ---
Author Name Unknown Organization [facility] Address [address] [place] [address] Care Team Providers Care Allocation Analyst Name Role Phone Samara Lu APRN, C.NRadhaPRadha [facility] * Radiation Therapy (Routine) - Closed Specialty Diagnoses / Procedures Referred By Elvin baker Referred To Contact Diagnoses Primary Malignant Neoplasm Of Prostate (HCC) Procedures Initial Rad Onc Treatment Planning CT Simulation Sharifa Mann M.D. [address] [place] [address] [facility] Region Referral ID Status Reason Start Date Expiration Date Visits Re quested Visits Authorized [id number] Closed 11/14/2023 11/13/2024 1 1 Encounter Details Date Type Department Care Team (Late st Contact Info) Description 12/04/2023 11:48 AM CDT Hospital Encounter Department of Radiation Oncology in [place], [place] [address] [place] [address] Sharifa Mann M.D. [address] [place] [phone] Social History Tobacco Use Types Packs/Day Years [...] week 04/12/2022 How often do you attend [facility] or restorationist services? More than 4 times per year 04/12/2022 Do you belong to any clubs o r organizations such as synagogue groups, unions, fraternal or athletic groups, or [...] Answer Date Recorded PHQ-2 Score 0 10/11/2022 [facility] - Occupational Stress [...] place to sleep or slept in a jail (including now)? 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 [address] [place] [phone] 12/16/2023 1:45 PM CDT Appointment Department of Radiation Oncology in [place], [place] [address] [place] [address] Thomas Pino M.D. [address] [place] [address] Pending Results Name Type Priority Associated Diagnoses Date/Time Initial Rad Onc Treatment Planning CT Simulation Procedural Imaging Routine Primary Malignant Neoplasm Of Prostate (HCC) 12/04/2023 1:00 PM CDT documented as of this encounter Procedures Procedure Name Priority Date/Time Associated Diagnosis Comments INITIAL RAD ONC TREATMENT PLANNING CT SIMULATION Routine 12/04/2023 1:00 PM CDT Primary Malignant Neoplasm Of Prostate (HCC) documented in this encounter Visit Diagnoses Not on filedocumented in this encounter Additional Health Concerns Assessment Noted Time PHQ-9 Depression Total Score: 0 08/14/19 16 8:27 AM ADMINISTRATIVE SALES ASSISTANT documented as of this encounter Care Teams Allocation Analyst Relationship Specialty Start Date End Date Samara Lu, DELFINO, C.N.P. [address] [place] [address] PCP - General Family Medicine 03/18/22 documented as of this encounter
--- OUTSIDE RECORDS SUMMARY | 2023-12-04 13:06 | XMS_ITS ---
Author Name Unknown Organization [facility] Address [address] [place] [address] Care Team Providers Care Ship Ceiler Name Role Phone Unavailable Unavailable Unavailable Surgery Details Not on file Complications Check Surgery Details section. Procedure Estimated Blood Loss Check Surgery Details section. Procedure Findings Check Surgery Details section. Procedure Specimens Taken Check Surgery Details section.
--- OUTSIDE RECORDS SUMMARY | 2023-12-04 13:06 | XMS_ITS | Referral Summary ---
Author Name Unknown Organization [facility] Address [address] [place] [address] Care Team Providers Care L Tacker Name Role Phone Samara Lu APRN, C.N.P. Primary Care Provi adry Source Comments Patient records contain information from all sites at [facility]. For routine questions regarding patient records, call [phone] during business hours, M-F 8:00 AM - 5:00 PM Central Time. Record requests for emergency care only can be directed to [phone] at any time.[facility] Encounters Date Type Department Care Team Description 12/04/2023 11:48 AM CDT Hospital Encounter Department of Radiation Oncology in [address] [phone] Sharifa Mann M.D. 11/27/2023 10:00 AM CDT - 11/28/2023 5:40 PM CDT Hospital Encounter Department of Radiation Oncology in [address] [phone] Thomas Pino M.D. Primary Malignant Neoplasm Of Prostate (HCC) (Primary Dx) 11/27/2023 Clinical Communication Department of Urology in [place], [place] [address] [place] [address] Heladio Ram M.D. Return Call Request 11/25/2023 7:09 PM CDT - 11/25/2023 11:59 PM CDT Hospital Encounter Department of Radiology in [place], [place] [address] [phone] Sue Robert APRN C.N.P., D.N.P. Pain Heel Right Discharge Disposition: Home or Self Care 11/25/2023 7:00 PM CDT Office Visit Department of Family Medicine, [facility] [place] [facility], in [place], [place] [address] [place] [phone] Sue Robert APRN C.N.P., D.N.P. Need Vaccine Immunization (Primary Dx); Pain Heel Right 11/25/2023 Nurse Triage Department of [facility], [facility] [place] [facility], in [place], [place] [address] [place] [phone] Sharifa Morales, RRadhaNRadha Foreign Body in Skin (Metal sliver in Right heel) 11/20/2023 8:45 AM CDT Clinical Support [facility] in [place], [place] [address] [place] [address] Sharifa Mann M.D. Atkinson, Katherine R, RSanjay Primary Malignant Neoplasm Of Prostate (HCC) 11/20/2023 9:15 AM CDT - 11/20/2023 5:27 PM CDT Hospital Encounter Department of Radiology, [facility], in [place], [place] [address] [place] [address] Sharifa Mann M.D. Primary Malignant Neoplasm Of Prostate (HCC) Discharge Disposition: Home or Self Care 11/14/2023 8:54 AM CDT - 11/16/2023 1:42 PM CDT Hospital Encounter Department of Radiation Oncology in [place], [place] [address] [place] [address] Thomas Pino M.D. Primary Malignant Neoplasm Of Prostate (HCC) (Primary Dx) 10/30/2023 1:30 PM CDT Office Visit Department of Urology in [place], [place] [address] [place] [address] Heladio Ram M.D. Primary Malignant Neoplasm Of Prostate (HCC) (Primary Dx) 10/23/2023 3:30 PM CDT - 10/23/2023 11:59 PM CDT Hospital Encounter Department of Laboratory Medicine in [place], [place] [address] [place] [address] Heladio Ram M.D. 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 More than 4 times per year 04/12/2022 Do you belong to any clubs o r organizations such as jain groups, unions, fraternal or athletic groups, or [...] Answer Date Recorded PHQ-2 Score 0 10/11/2022 [facility] - Occupational [...] place to sleep or slept in a nursing home (including now)? No 04/12/2022 Nutrition Answer [...] Sexual Orientation Straight 06/10/2018 2: 45 PM KILN PACKER Last Filed Vital Signs Vital Sign Reading [...] CDT Office Visit Department of Urology in [place], [place] [address] [place] [address] Heladio Ram M.D. [address] [place] [address] 12/16/2023 1:45 PM CDT Appointment Department of Radiation Oncology in [place], [place] [address] [place] [phone] Thomas Pino M.D. [address] [place] [address] Medical Devices Implanted Type Area Waterproofing Mixer Device Identifier Shelf Expiration Date Model / Serial / Lot Marker Tissue Biomarc Kv 1x5 - [id number] Implanted:Qt y: 4 on 11/20/2023 by Kan Marquez M.B., Ch.B. at [facility] Imaging Marker Circumferen tial: Prostate [facility] [id number] 07/03/2028 [id number] / / [id number] Procedures Procedure Name Priority Date/Time Associated Diagnosis [...] Disease US AORTA Routine 08/14/2015 9:52 AM KILN PACKER from Last 3 Months or Most Recently [...] hydrogel was prepared as described in the checkerer hand's Instructions For Use. With the subject maintained [...] hydrogel was prepared as described in the checkerer hand'sInstructions For Use. With the subject maintained in [...] CDT Heladio Ram M.D. LAB BLOOD ADD-ON [facility] [address] [place] [address], [place] [facility] [place] [address] [place] [address] * Alkaline Phosphatase (10/23/2023 3:37 PM CDT) Alkaline Phosphatase, P 60 40 - 129 U/L 10/23/2023 4:10 PM CDT [facility] Blood (Blood, Venous) 10/23/2023 3:37 PM CDT 10/23/2023 3:47 PM CDT Heladio Ram M.D. LAB BLOOD ADD-ON Performing Organization Address [facility]/ZIP Co de Phone Number [facility] [address] [place] [address], [place] [facility] [place] [address] [place] [address] * Creatinine with Estimated GFR (10/23/2023 3:37 PM CDT) Creatinine 0.99 0.74 - 1.35 mg/dL 10/23/2023 4:10 PM CDT [facility] Estimated GFR (eGFR) 78 >=60 mL/min/BSA 10/23/2023 4:10 PM CDT [facility] Comment: Estimated GFR calculated using the 2020 CKD_EPI creatinine equation. Blood (Blood, Venous) 10/23/2023 3:37 PM CDT 10/23/2023 3:47 PM CDT Heladio Ram M.D. LAB BLOOD ADD-ON [facility] [address] [place] [address], [place] [facility] [place] [address] [place] [address] * HCV Ab Scrn w/Reflex to HCV PCR, Serum (01/03/2021 8:48 AM CDT) HCV Ab Screen, S Negative Negative 01/04/2021 8:29 AM CDT [facility] Comment:Jleznu-ci-egrfwl rat io is <1.00. Blood (Blood, Venous) 01/03/2021 8:48 AM CDT 01/04/2021 7:31 AM CDT Susie Gramajo P.A.-C. LAB MICROBIOLOGY - BLOOD ORDERABLES [facility] [address] [place] [address] [facility] Dept. of Laboratory Medicine and Pathology [address] [place] [address] * US Aorta (08/14/2015 9:52 AM KILN PACKER) Anatomical Region Laterality Modality Abdomen, Pelvis N/A Ultrasound 08/14/2015 9:52 AM KILN PACKER Addenda Addendum by Yoel Reyes M.D. on 08/14/2015 9:52 AM KILN PACKER RAD^^^OW US Abdominal Aorta 08/14/2015 09:52:54 Addendum by Yoel Reyes M.D. on 08/14/2015 9:56 AM KILN PACKER RAD^^^OW US Abdominal Aorta 08/14/2015 09:56:25 Impressions 08/15/2015 10:22 AM KILN PACKER ??Normal caliber abdominal aorta and bilateral common iliac arteries. Narrative 08/15/2015 10:22 AM KILN PACKER EXAM: ??US Abdominal Aorta AGE: ??70 years [...] abdominal aorta and bilateral common iliac arteries. Sherrie Hampton R.V.T., REyalMRadhaSRadha IMG U S PROCEDURES from Last 3 Months or Most Recently Relevant to Health Maintenance Care Teams L Tacker Relationship Specialty Start Date End Date Samara Lu, SPORTS LEADERSHIP INSTRUCTOR, C.N.P. [address] [place] [phone] PCP - General Family Medicine 03/18/22
--- OUTSIDE RECORDS SUMMARY | 2023-12-04 13:06 | XMS_ITS ---
Author Name Unknown Organization [facility] Address [address] [place] [address] Care Team Providers Care Computing Machine Operator Name Role Phone Samara Lu APRN, C.N.P. Primary Care Provi adry Active Problems Problem Noted Date Diagnosed Date [...] Polyp Colon 08/20/2015 Mass Abdominal Site 08/20/2015 Current Oncology Plans No current plan information found. Past Plans No past plan information found. Radiation Treatments * No radiation treatments are documented for this patient in Epic. Treatments may have been administered in another system. Lifetime Dose Tracking * Chemical Lifetime Dose Automatic Entry Manual Entr y Radiation 152.42 mGy 152.42 mGy 0 mGy Fluoro Time 4.483 minutes 4.483 minutes 0 minutes
--- OUTSIDE RECORDS SUMMARY | 2023-12-04 13:07 | XMS_ITS | Encounter Summary ---
Author Name Unknown Organization [facility] Address [address] [place] [address] Care Team Providers Care Sales Agent Protective Service Name Role Phone Samara Lu APRN, C.N.P. Primary Care Provi adry Reason for Referral * MRI/CAT/PET Scan (Routine) - Authorized Specialty Diagnoses / Procedures Referred By Contac t Referred To Contact Radiology Diagnoses Primary Malignant Neoplasm Of Prostate (HCC) Procedures MR Prostate without IV Contrast Thomas Pino M.D. [address] [place] [address] [facility] Referral ID Status Reason Start Date Expiration Date V isits Requested Visits Authorized [id number] Authorized 11/14/2023 11/13/2024 1 1 * Specialty Diagnoses / Procedures Referred By Contac t Referred To Contact Sharifa Mann M.D. [address] [place] [address] [facility] Referral ID Status Reason Start Date Expiration Date Visits Re quested Visits Authorized * Radiation Therapy (Routine) - Authorized Specialty Diagnoses / Procedures Referred By Contac t Referred To Contact Diagnoses Primary Malignant Neoplasm Of Prostate (HCC) Procedures Management Visit Sharifa Mann M.D. [address] [place] [address] [facility] Region Referral ID Status Reason Start Date Expiration Date V isits Requested Visits Authorized [id number] Authorized 11/14/2023 11/13/2024 3 3 * Radiation Therapy (Routine) - Closed Specialty Diagnoses / Procedures Referred By Contac t Referred To Contact Diagnoses Primary Malignant Neoplasm Of Prostate (HCC) Procedures Initial Rad Onc Treatment Planning CT Simulation Sharifa Mann M.D. [address] [place] [address] [facility] Region Referral ID Status Reason Start Date Expiration Date Visits Re quested Visits Authorized [id number] Closed 11/14/2023 11/13/2024 1 1 * Radiation Therapy (Routine) - Authorized Specialty Diagnoses / Procedures Referred By Contac t Referred To Contact Diagnoses Primary Malignant Neoplasm Of Prostate (HCC) Procedures Prior Auth Rad Tx Sharifa Mann M.D. [address] [place] [phone] [facility] Referral ID Status Reason Start Date Expiration Date V isits Requested Visits Authorized [id number] Authorized 11/14/2023 11/13/2024 1 1 * Specialty Diagnoses / Procedures Referred By Contac t Referred To Contact Sharifa Mann M.D. [address] [place] [phone] [facility] Region Referral ID Status Reason Start Date Expiration Date Visits Re quested Visits Authorized * Outpatient (Routine) - Closed Specialty Diagnoses / Procedures Referred By Contac t Referred To Contact Radiation Oncology Sharifa Mann M.D. [address] [place] [address] Thomas Pino M.D. [address] [place] [address] Referral ID Status Reason Start Date Expiration Date Visits Re quested Visits Authorized [id number] Closed 11/14/2023 05/15/2025 1 1 Scheduling Instructions Please schedule before sim same day, and after the marker/spacer procedure. * Outpatient (Routine) - Closed Specialty Diagnoses / Procedures Referred By Contac t Referred To Contact Diagnoses Primary Malignant Neoplasm Of Prostate (HCC) Procedures Enema Prep Sharifa Mann M.D. [address] [place] [address] [facility] Referral ID Status Reason Start Date Expiration Date Visits Re quested Visits Authorized [id number] Closed 11/14/2023 11/13/2024 1 1 * Outpatient (Routine) - Closed Specialty Diagnoses / Procedures Referred By Contac t Referred To Contact Diagnoses Primary Malignant Neoplasm Of Prostate (HCC) Procedures US Prostate Fiducial Marker Placement with Hydrogel Spacer [place] [address] [facility] Referral ID Status Reason Start Date Expiration Date Visits Re quested Visits Authorized [id number] Closed 11/14/2023 11/13/2024 1 1 * Outpatient (Routine) - Closed Specialty Diagnoses / Procedures Referred By Contac t Referred To Contact Radiation Oncology Diagnoses Primary Malignant Neoplasm Of Prostate (HCC) Heladio Ram M.D. [address] [place] [address] [facility] Region Referral ID Status Reason Start Date Expiration Date Visits Re quested Visits Authorized [id number] Closed 10/30/2023 04/30/2025 1 1 Reason for Visit * Outpatient (Routine) - Closed Specialty Diagnoses / Procedures Referred By Contac t Referred To Contact Radiation Oncology Diagnoses Primary Malignant Neoplasm Of Prostate (HCC) Heladio Ram M.D. [address] [place] [address] [facility] Region Referral ID Status Reason Start Date Expiration Date Visits Re quested Visits Authorized [id number] Closed 10/30/2023 04/30/2025 1 1 Encounter Details Date Type Department Care Team (Latest Contact Info) Description 11/14/2023 8:54 AM CDT - 11/16/2023 1:42 PM CDT Hospital Encounter Department of Radiation Oncology in [place], [place] [address] [place] [phone] Thomas Pino M.D. [address] [place] [address] Primary Malignant Neoplasm Of Prostate (HCC) (Primary [...] How often do you attend chur or catholic services? More than 4 times per year 04/12/2022 Do you belong to any clubs o r organizations such as anabaptism groups, unions, fraternal or athletic groups, or [...] Answer Date Recorded PHQ-2 Score 0 10/11/2022 [facility] [place] [facility] Occupat ional Health - Occupational Stress [...] place to sleep or slept in a snf (including now)? 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 08/15/2022 cyanocobalamin (vitamin B-12) 1,000 mcg tabletIndications:Def iciency Vitamin B12 Take 1 tablet (1,000 mcg total) by mouth daily. 90 tablet 1 05/11/2022 cycloSPORINE (Restasis) 0.05 % ophthalmic emulsionIndications:S jogren's (Sicca) Syndrome (HCC) Administer 1 drop into both eyes 2 (two) times a day. 90 each 3 01/03/2021 fluticasone propionate (FLONASE) 50 mcg/actuation nasal spray Administer 2 sprays into each nostril daily. hydrOXYchloroQUINE (PLAQUENIL) 200 mg tablet Take 200 mg by mouth daily. 10/15/2022 magnesium 250 mg tablet Take 250 mg by mouth every morning before breakfast. omega 2-xka-wfb-fish oil (fish oil) 100-160-1,000 mg capsule Take 1 capsule by mouth 2 (two) times a day. 05/02/2011 oxyCODONE (ROXICODONE) 5 mg immediate release tabletIndications:Chr onic Pain/Nonacute Pain Take 1 tablet (5 mg total) by mouth daily as needed for severe pain or score 7-10 of 10 Indication: Chronic Pain/Nonacute Pain. 20 tablet 05/30/2023 pregabalin (LYRICA) 75 mg capsule TAKE ONE CAPSULE BY MOUTH AT BEDTIME FOR 7 DAYS THEN TAKE ONE CAPSULE BY MOUTH TWICE A DAY 06/03/2023 rosuvastatin (CRESTOR) 5 mg tabletIndications:Hyp erlipidemia Mixed Take 1 tablet (5 mg total) [...] ORAL Take 1 tablet by mouth daily. cephalexin (KEFLEX) 500 mg capsule Take 1 capsule (500 mg total) by mouth every 12 (twelve) hours for 3 doses. Please take one dose the night before marker/spacer placement, and the second dose the morning of the procedure. The 3rd pill is extra in case you drop or lose one of the others. 3 capsule 11/14/2023 11/16/2023 documented as of this encounter Consult Notes * Sharifa Mann M.D. - 11/14/2023 9:00 AM CDT RADIATION ONCOLOGY CONSULTATION Supervising Home Assessment Nurse: Dr. Thomas Pino REQUESTING PROVIDER Heladio Ram M.D. VISIT DIAGNOSIS and STAGING #Low risk prostate cancer diagnosed in May 2021: cT1c, Ada 3+3 (GG1), 3/12 cores positive,PSA 6.5, PSA density 0.35. - Active surveillance since that time #Repeat biopsy in June 2023: Ada 3+3 (GG1) in 1/13 cores #Now classified as favorable intermediate risk due to rising PSA, now 10.2 SUBJECTIVE HISTORY OF PRESENT ILLNESS Mr. James is 78 y.o. and resides in [place] with pertinent medical history including low risk prostate cancer diagnosed in May 2021, PAD, and Sjogren's syndrome on Plaquenil. He presents today to discuss radiotherapy for favorable intermediate risk prostate cancer. Oncology History Primary Malignant Neoplasm Of Prostate [...] Negative for perineural invasion or extracapsular extension. 09/29 positive cores 07/12/2021 Clinical Stage Staging form: Prostate, AJCC 8th Edition - Clinical stage from 07/12/2021: Stage I (cT2a, cN0, cM0, PSA: 6.5, Grade Group: 1) Histopathologic type: Adenocarcinoma, NOS Prostate specific antigen (PSA) range: Less than 10 Rocklin primary pattern: 3 Rocklin secondary pattern: 3 Histologic grading system: 5 grade system Number of biopsy cores examined: 16 Number of biopsy cores positive: 3 Location of positive needle core biopsies: One side 09/2021 Other 09/27/2021: PSA 8.2 ng/mL 01/28/2022: PSA 7.1 ng/mL 05/20/2022: PSA 7.1 ng/mL 09/17/2022: PSA 7.3 ng/mL 01/17/2023: PSA 8.2 ng/mL 05/16/2023 Critical Imaging MR Prostate PROSTATE: Volume: 28.9cc (PSA density 0.28) Exam quality: Good. Peripheral zone: Lesion #2 (PI-RADS 4) as described below. The previously described PI-RADS 3 lesion in the left lateral posterior peripheral zone shows no significant restricted diffusion, favored PI-RADS 2 (series 4 image 19). This lesion was previously biopsied with the result of GS 3+3 active directory administrator. This lesion was also marked as Lesion [...] node(s). BONES: Negative for suspicious bone lesion(s). 05/23/2023 Other PSA 8.7 ng/mL 06/26/2023 Biopsy/Pathology FINAL DIAGNOSIS A: Right prostate, [...] torising PSA, he recommended Radiation Oncology opinion. The patient has seen urology regularly to follow his low-risk prostate cancer, now classified as favorable intermediate risk due to rising PSA of 10.2. Today: Mr. James presents to discuss radiation as an option to treat his prostate cancer. He shared that he has several friends and acquaintances who have had prostate cancer, who pursued cryoablation, surgery, and radiation. The patient personally feels that he would not want a surgery, and is most interested in radiation. In terms of urinary function, Mr. James describes a weak intermittent stream of urine, which can be stronger on days when he is more active. He is not bothered by urinary frequency or urgency. He has not had blood in the stool or urine and does not have incontinence. The patient has diarrhea related to Plaquenil, which he takes for Sjogren's syndrome. He manages this by using imodium three timesweekly. He also takes Flomax once daily. Mr. James's primary bothersome symptom is actually back pain. He is still very active with big [employer] projects, but feels that musculoskeletal pain limits his activities. The patient has no shortness of breath or chest pain when working outside. Mr. James is the primary caregiver for his , who requires full-time care. I-PSS I-PSS Urinary Symptoms Score: 13 I-PSS Quality of Life Score: 3 Fatigue: 0/10 Pain: 6/10 (low back pain, scheduled for injection early next week) Overall QOL: 5/10 REVIEW OF SYSTEMS Review of systems as noted in HPI. Medications, Allergies, Pertinent Past Medical History, Past Surgical History, Social History, and Family History were reviewed. 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 PHYSICAL EXAMINATION ECOG score: 1 - Restricted in physically strenuous activity but ambulatory and able to carry out work of a light or sedentary nature -- limited by back pain General: Well-appearing, in no acute distress. Head: Normocephalic, atraumatic Lungs: Normal work of breathing on room air. Skin: Warm, dry Neuro: Alert and oriented. Psychiatric: Euthymic mood and appropriate affect. Extremities: No significant edema RECENT IMAGING, independently reviewed: 16 May 2023: MRI Prostate: IMPRESSION: 1. PIRADS 5- Very high (clinically significant cancer is highly likely to be present). 2. Interval increased size of PI-RADS 5 lesion (previously PI-RADS 4) centered in the right anterior transition zone at the base to midgland, marked as Lesion #1 on DynaCAD. 3. New PI-RADS 4 lesion in the median to left medial peripheral zone at the midgland, marked as Lesion #2 on DynaCAD. 4. Previously mentioned PI-RADS 3 lesion in the left lateral peripheral zone at midgland is consistent with PI-RADS 2 on the current exam. This lesion was previously biopsied with the result of GS 3+3. This lesion was marked as lesion #3 on DynaCAD just in case. 5. No MRI evidence of metastasis in the pelvis. ASSESSMENT / PLAN #Favorable intermediate risk prostate cancer; cT1c, Ada 3+3 (GG1) in as many as 3/12 cores in 2020, PSA 10.2 Mr. James is a 78 y.o. patient with history of low risk prostate cancer now classified as favorable intermediate risk due to rising PSA, presenting today to discuss radiation therapy. We reviewed the pertinent clinical and pathologic features of the disease, including the fact that his two biopsies have showed low volume, low grade disease despite multiple lesions identified on MRI. Agree with Dr. Ram that his biopsies may be under-representing disease. In this setting, we recommend either continued active surveillance or monotherapy treatment with radiation, which could be delivered inas few as five days. Studies have shown that patients who continue with active surveillance for appr opriately low-risk disease have equivalent outcomes to patients who pursue treatment, with a very small increased rate of distant metastases. The patient is very motivated to treat the prostate cancer now, so we focused our conversation on radiation options. We would not recommend ADT for this favorable prostate cancer. We discussed the differences between SBRT vs moderately hypofractionated radiation in 20 treatments. For simulation, we would require an enema and full bladder before CT scan and MRI. For SBRT, marker/spacer would be required before any planning images, and an enema would be used every day before treatment. We also reviewed the acute toxicities associated with radiation treatment including, but not limited to fatigue, radiation dermatitis, urinary frequency and urgency, burning with urination, difficulty starting a urine stream, looser stools or diarrhea, and changes in appetite. The risk of late toxicities and expected long-term oncologic outcomes were also discussed, including radiation proctitis and cystitis, urinary stricture, acute side-effects not returning to baseline, erectile dysfunction, and <07/999 risk of secondary malignancy at 10 years post-treatment. Mr James asked several excellent questions which we discussed. He expressed understanding of the objective of radiation therapy, the potential acute and chronic toxicities, and the radiation planning and delivery process. After talking with Dr. Pino, Mr. James expressed his wish to go forwardwith SBRT. The patient will meet the rest of our radiation oncology team as he progresses through simulation, treatments, and weekly management visits. Patient seen for the service of Dr. Thomas Pino. PLAN - Order marker/spacer in [place] - Simulation CT and MRI following that appointment in [place] - Plan for SBRT, 5 fractions, every other day - Will send prescription for Keflex to take before marker/spacer Signed: Sharifa Mann MD Resident Physician Department of Radiation Oncology Please don't hesitate to contact me with questions or discussion! Text Pager: [phone] Associated attestation - Thomas Pino M.D. - 11/16/2023 1:41 PM CDT I saw and evaluated the patient and participated in the horowitz portions of the service. I reviewed thedocumentation of Sharifa Mann M.D. and agree with the findings and plan. The patient appears well on exam. He will continue with treatment as planned. Billy James is a 78 y.o. male was diagnosed with low risk, stage I (cT2a, cN0, cM0, PSA: 6.5, Grade Group: 1) adenocarcinoma of the prostate with a biopsy on July 05, 2021 and had Ada 3 + 3 disease in 3 of [...] only 1 of 13 cores again for Rocklin 3 + 3 disease. PSA on October 23, 2023 was 10.2 ng/mL. We are asked by Dr. Ram to evaluate the patient for radiotherapy. His oncologic history is well detailed in Dr. Mann's note. The patient reports that he is currently feeling reasonably well though he does have chronic back pain. He does have Sjogren syndrome for which he takes Plaquenil. This results in diarrhea that responded to Imodium 3 times weekly. He takes tamsulosin 0.4 mg daily with good effect. His brother had prostate cancer. His sister had both breast cancer and kidney cancer. Another brother had liver cancer. 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 The patient's ECOG performance status is 0. OBJECTIVE BP 144/58 (BP Location: Right arm, Patient Position: Sitting) Pulse 64 Temp 36.2 ??C (Temporal) Wt 79.3 kg BMI 28.09 kg/m?? PHYSICAL EXAM General: Patient is awake, alert, and oriented to person, place, and time. No apparent distress. The patient is here today by himself. DIAGNOSTICS I reviewed the patient's pathology reports and imaging. ASSESSMENT / PLAN #1 Stage I (cT2a, cN0, cM0, PSA: 6.5, Grade Group: 1) adenocarcinoma of the prostate diagnosed withbiopsy on July 05, 2021 and managed with active surveillance #2 MRI of the prostate on May 16, 2023 with a PI-RADS 5 lesion and a PI-RADS 4 lesion #3 Repeat biopsy on June 26, 2023 revealed Ada 3 + 3 disease in 1 of 13 cores, PSA rise to 10.2 ng/mL on October 23, 2023 I had a detailed discussion with the patient regarding the risks, benefits, and alternatives of radiotherapy in this setting. I consulted the NCCN guidelines in formulating my recommendations and reviewed these with him. The patient has already discussed prostatectomy with Dr. Ram; hence, I focused my discussion on radiotherapy options. He now has favorable intermediate risk disease. There is some discordance between his MRI and his biopsies. Hence, I think it makes sense to proceed with active treatment. Radiotherapy options include: 1. External beam radiotherapy alone to a dose of 60 Gy in 20 fractions or 70.2 Gy in 26 fractions utilizing IMRT; 2. Stereotactic body radiation therapy to a dose of 36.25 to 40 Gy in 5 fractions. Given his age and comorbidities, I would not recommend brachytherapy. Given his favorable-intermediate risk disease, I would not recommend the addition of androgen deprivation therapy. We discussed the use of a Hydrogel spacer. We discussed the results of the ProtecT trial that randomized patients to surgery, radiotherapy, orobservation (Jennifer et al, [facility], 2016) that showed that surgery and radiotherapy were equally efficacious. We also discussed the fact that surgical salvage is typically not possible after any form of prostate radiotherapy. I also discussed the indications for adjuvant radiotherapy following prostatectomy as well as salvage radiotherapy in the setting of rising PSA. I discussed the logistics as well as the acute and chronic side effects associated with treatment. For a complete listing of these, please see Dr. Mann's note. This family history of prostate cancer in his brother, another brother with liver cancer, and breast and kidney cancer in his sister as well as his own diagnosis, he may benefit from referral to a genetics counselor. He does have 2 sons. After this discussion, I provided the patient with a written summary of my recommendations. His questions were answered to their verbalized satisfaction. The patient verbally stated that he would like to proceed with stereotactic body radiotherapy. He will proceed with SpaceOAR placement in [place]. He will return undergo CT simulation and planning MRI soon after. We discussed our bladder filling and rectal emptying protocol with SBRT including enemas prior to each treatment. He verbalized satisfaction with this plan. My thanks to Dr. Ram and Ms. Lu for the opportunity to participate in this patient's care. I have spent 60 minutes caring for this patient including [id number] and pzr-bqle-zg-face time. Signed by: Thomas Pino M.D. 11/16/2023 1:41 PM CDT [facility] documented in this encounter Plan of Treatment Upcoming Encounters Date Type Department Care Team (Late st Contact Info) Description 12/08/2023 8:45 AM CDT Office Visit Department of Urology in [place], [place] [address], [place] [address] Heladio Ram M.D. [address] [place] [phone] 12/16/2023 1:45 PM CDT Appointment Department of Radiation Oncology in [place], [place] [address] [place] [address] Thomas Pino M.D. [address] [place] [address] Pending Results Name Type Priority Associated Diagnoses Date/Time Initial Rad Onc Treatment Planning CT Simulation Procedural Imaging Routine Primary Malignant Neoplasm Of Prostate (HCC) 12/04/2023 1:00 PM CDT Scheduled Orders Name Type Priority Associated Diagnoses Order Schedule Enema Prep Procedures Routine Primary Malignant Neoplasm Of Prostate (HCC) Expected: 11/14/2023, Expires: 02/12/2025 Prior Auth Rad Tx Radiation Oncology Routine Primary Malignant Neoplasm Of Prostate (HCC) Ordered: 11/14/2023 Management Visit Radiation Oncology Routine Primary Malignant Neoplasm Of Prostate (HCC) 3 Occurrences starting 11/14/2023 until 11/13/2026 MR Prostate without IV Contrast Imaging RAD - Routine (most inpatients and all outpatients) Primary Malignant Neoplasm Of Prostate (HCC) Expected: 11/18/2023 (Approximate), Expires: 11/13/2024 Scheduled Referrals Name Type Priority Associated Diagnoses Order Schedule Radiation Oncology - consult (clinic) Outpatient Referral Routine Primary Malignant Neoplasm Of Prostate (HCC) Once for 1 Occurrences starting 11/14/2023 until 11/14/2023 Radiation Oncology office visit (clinic) Outpatient Referral Routine Expected: (Approximate), Expires: 02/12/2025 Radiation Oncology - PRO education visit Outpatient Referral Routine Primary Malignant Neoplasm Of Prostate (HCC) Expected: 11/14/2023, Expires: 02/12/2025 Radiation Oncology - Nurse education visit (clinic) Outpatient Referral Routine Primary Malignant Neoplasm Of Prostate (HCC) Expected: 11/14/2023, Expires: 02/12/2025 documented as of this encounter Results * US Prostate Fiducial Marker Placement with [...] hydrogel was prepared as described in the store promoter's Instructions For Use. With the subject maintained [...] hydrogel was prepared as described in the store promoter'sInstructions For Use. With the subject maintained in [...] and rectum. No immediate complications. 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 [address] [place] [address] PCP - General Family Medicine 03/18/22 documented as of this encounter
--- OUTSIDE RECORDS SUMMARY | 2023-12-04 13:07 | XMS_ITS | Encounter Summary ---
Author Name Unknown Organization [facility] Address [address] [place] [address] Care Team Providers Care Police Stenographer Name Role Phone Samara Lu APRN C.N.P. Primary Care Provi adry Reason for Visit * Reason Onset Date Comments Foreign Body in Skin 11/25/2023 Metal slive r in Right heel Encounter Details Date Type Department Care Team (Late st Contact Info) Description 11/25/2023 Nurse Triage Department of Family Medicine, [facility], in [place], [place] [address] [address] Sharifa Morales S, R.N. [address] [place] [phone] Foreign Body in Skin (Metal sliver in Right heel) Social History Tobacco Use Types Packs/Day Years [...] How often do you attend chur or worship services? More than 4 times per year 04/12/2022 Do you belong to any clubs o r organizations such as temple groups, unions, fraternal or athletic groups, or [...] Answer Date Recorded PHQ-2 Score 0 10/11/2022 [facility] of Occupat ional Health - Occupational Stress [...] place to sleep or slept in a senior living (including now)? No 04/12/2022 Nutrition Answer Date [...] Sexual Orientation Straight 06/10/2018 2: 45 PM EVENT DECORATOR documented as of this encounter Miscellaneous Notes * Telephone Encounter - Sharifa Morales R.N. - 11/25/2023 10:39 AM CDT Chief Complaint / Reason for Call Patient is a 78 y.o. male calling regarding Foreign Body in Skin (Metal sliver in Right heel). Assessment Concern: Metal sliver to right heel. Tdap 05/20/2014 Present for: a couple weeks Home cares tried: epsom salt soaks Calling to request: appointment The recommended disposition is See a health care provider within 24 hours. Care Advice Patient/Caregiver understands and will follow care advice?: Yes, able to teach back Skin Foreign [id number] Laura Tanner November 25, 2023 10:41 AM Care Advice SEE PCP WITHIN 24 HOURS REASSURANCE AND EDUCATION: * Since the FB isn't causing you any pain or bleeding, it will be safe to remove it during office hours. CALL BACK IF: * Fever occurs * You become worse Patient was scheduled for an acute appointment via [facility] Scheduling. Reason for Disposition [1] Caller can't get FB out AND [2] causing no pain (Exception: Tiny, superficial, pain-free FBs; since these don't need to be removed.) Protocols used: Skin Foreign [id number] documented in this encounter Plan of Treatment Upcoming Encounters Date Type Department Care Team (Late st Contact Info) Description 12/08/2023 8:45 AM CDT Office Visit Department of Urology in [place], [place] [address] [place] [phone] Heladio Ram M.D. [address], [place] [phone] 12/16/2023 1:45 PM CDT Appointment Department of Radiation Oncology in [place], [place] [address] [place] [phone] Thomas Pino M.D. [address] [place] [address] documented as of this encounter Visit Diagnoses Not on filedocumented in this encounter Additional Health Concerns Assessment Noted Time PHQ-9 Depression Total Score: 0 01/25/20 16 8:27 AM EVENT DECORATOR documented as of this encounter Care Teams Police Stenographer Relationship Specialty Start Date End Date Samara Lu, DELFINO, C.N.P. [address] [place] [phone] PCP - General Family Medicine 03/18/22 documented as of this encounter
--- OUTSIDE RECORDS SUMMARY | 2023-12-04 13:07 | XMS_ITS | Encounter Summary ---
Author Name Unknown Organization [facility] Address [address] [place] [address] Care Team Providers Care Research Kennel Supervisor Name Role Phone Samara Lu APRN, C.N.P. Primary Care Provi adry Encounter Details Date Type Department Care Team (Latest Contact Info) Description 10/23/2023 3:30 PM CDT - 10/23/2023 11:59 PM CDT Hospital Encounter Department of Laboratory Medicine in [place], [place] [address] [phone] Heladio Ram M.D. [address] [phone] Primary Malignant Neoplasm Of Prostate (HCC) Discharge Disposition: Home or Self Care Social [...] How often do you attend chur or roman catholic services? More than 4 times per year 04/12/2022 Do you belong to any clubs o r organizations such as moravian groups, unions, fraternal or athletic groups, or [...] Answer Date Recorded PHQ-2 Score 0 10/11/2022 [facility] of Occupat ional Health - Occupational Stress [...] place to sleep or slept in a fdc (including now)? No 04/12/2022 Nutrition Answer Date [...] Sexual Orientation Straight 06/10/2018 2: 45 PM FISHERIES ENFORCEMENT OFFICER documented as of this encounter Medications at [...] by mouth every morning before breakfast. omega 4-gbb-bcl-fish oil (fish oil) 100-160-1,000 mg capsule Take 1 capsule by mouth 2 (two) times a day. 05/02/2011 oxyCODONE (ROXICODONE) 5 mg immediate release tabletIndications:Industrial Chemicals Supervisor maximino Pain/Nonacute Pain Take 1 tablet (5 [...] CDT Office Visit Department of Urology in [place], [place] [address] [place] [address] Heladio Ram M.D. [address] [place] [address] 12/16/2023 1:45 PM CDT Appointment Department of Radiation Oncology in [place], [place] [address] [place] [address] Thomas Pino M.D. [address] [place] [address] documented as of this encounter Procedures Procedure Name Priority Date/Time Associated Diagnosis Comments PROSTATE-SPECIFIC AG (PSA) DIAGNOSTIC, S Routine 10/23/2023 3:37 PM CDT Primary Malignant Neoplasm Of Prostate (HCC) ALKALINE PHOSPHATASE, S/P Routine 10/23/2023 3:37 PM CDT Primary Malignant Neoplasm Of Prostate (HCC) CREATININE WITH EGFR, S/P Routine 10/23/2023 3:37 PM CDT Primary Malignant Neoplasm Of Prostate (HCC) documented in this encounter Results * (ABNORMAL) PSA (Prostate-Specific Antigen), Diagnostic (10/23/2023 [...] CDT Heladio Ram M.D. LAB BLOOD ADD-ON [facility] [address] [place] [address], [facility] [place] [address] [place] [address] * Creatinine with Estimated GFR (10/23/2023 3:37 PM CDT) Creatinine 0.99 0.74 - 1.35 mg/dL 10/23/2023 4:10 PM CDT [facility] Estimated GFR (eGFR) 78 >=60 mL/min/BSA 10/23/2023 4:10 PM CDT [facility] Comment: Estimated GFR calculated using the 2020 CKD_EPI creatinine equation. Blood (Blood, Venous) 10/23/2023 3:37 PM CDT 10/23/2023 3:47 PM CDT Heladio Ram M.D. LAB BLOOD ADD-ON [facility] [address] [place] [address], [place] [facility] [place] [address] [place] [address] * Alkaline Phosphatase (10/23/2023 3:37 PM CDT) Alkaline Phosphatase, P 60 40 - 129 U/L 10/23/2023 4:10 PM CDT [facility] Blood (Blood, Venous) 10/23/2023 3:37 PM CDT 10/23/2023 3:47 PM CDT Heladio Ram M.D. LAB BLOOD ADD-ON [facility] [address] [place] [address], [place] AT [facility] in [place] [address] [place] [address] documented in this encounter Visit Diagnoses Diagnosis Primary Malignant Neoplasm Of Prostate (HCC) documented in this encounter Additional Health Concerns Assessment Noted Time PHQ-9 Depression Total Score: 0 08/14/19 16 8:27 AM FISHERIES ENFORCEMENT OFFICER documented as of this encounter Care Teams Research Kennel Supervisor Relationship Specialty Start Date End Date Samara Lu, DELFINO, C.N.P. [address] [place] [phone] PCP - General Family Medicine 03/18/22 documented as of this encounter
--- OUTSIDE RECORDS SUMMARY | 2023-12-04 13:07 | XMS_ITS | Encounter Summary ---
Author Name Unknown Organization [facility] Address [address] [place] [address] Care Team Providers Care Mine Wedge Sawyer Name Role Phone Samara Lu APRN, C.NFred Primary Care Provi adry Reason for Referral * Outpatient (Routine) - Closed Specialty Diagnoses / Procedures Referred By Elvin baker Referred To Contact Diagnoses Primary Malignant Neoplasm Of Prostate (HCC) Procedures US Prostate Fiducial Marker Placement with Hydrogel Spacer Sharifa Mann M.D. [address] [place] [address] [facility] Referral ID Status Reason Start Date Expiration Date Visits Re quested Visits Authorized [id number] Closed 11/14/2023 11/13/2024 1 1 Reason for Visit * Outpatient (Routine) - Closed Specialty Diagnoses / Procedures Referred By Elvin baker Referred To Contact Diagnoses Primary Malignant Neoplasm Of Prostate (HCC) Procedures US Prostate Fiducial Marker Placement with Hydrogel Spacer Sharifa Mann M.D. [address] [place] [phone] [facility] Referral ID Status Reason Start Date Expiration Date Visits Re quested Visits Authorized [id number] Closed 11/14/2023 11/13/2024 1 1 Encounter Details Date Type Department Care Team (Latest Contact Info) Description 11/20/2023 9:15 AM CDT - 11/20/2023 5:27 PM CDT Hospital Encounter Department of Radiology, [facility], in [place], [place] [address] [place] [address] Sharifa Mann M.D. [address] [place] [address] Primary Malignant Neoplasm Of Prostate (HCC) Discharge [...] often do you attend chur ch or samaritan services? More than 4 times per year 04/12/2022 Do you belong to any clubs o r organizations such as yazidi groups, unions, fraternal or athletic groups, or [...] Answer Date Recorded PHQ-2 Score 0 10/11/2022 [facility] of Occupat ional Health - [...] place to sleep or slept in a retirement (including now)? No 04/12/2022 Nutrition Answer Date [...] Sexual Orientation Straight 06/10/2018 2: 45 PM FORESTER SILVICULTURE documented as of this encounter Medications at [...] by mouth every morning before breakfast. omega 1-bvp-pxe-fish oil (fish oil) 100-160-1,000 mg capsule Take 1 capsule by mouth 2 (two) times a day. 05/02/2011 oxyCODONE (ROXICODONE) 5 mg immediate release tabletIndications:Car Racer maximino Pain/Nonacute Pain Take 1 tablet (5 [...] mouth daily. documented as of this encounter Nursing Notes * Gretta Cortez R.N. - 11/20/2023 10:28 AM CDT The hydrogel spacer contains a component called Polyethylene Glycol. Have you ever had an allergic reaction to PEG? NO If no, move to question 2. If yes, questions A and B open. Polyethylene Glycol is also the main ingredient in many laxatives/ bowel preps for colonoscopies. Examples of this are MiraLax, MoviPrep and Golytely. Have you ever had a colonoscopy or colonoscopy prep? YES If no, continue to question 3. If yes, question C opens. Did you have any type of reaction to the prep? NO If no, continue to question 4. If yes, answer questions a, b, and c. Polyethylene Glycol is also an ingredient in the Pfizer and Moderna COVID vaccines. If you had the Pfizer or Moderna COVID vaccine, did you have an allergic reaction to it? NO The radiologist may select a spacer that also contains an iodinated contrast agent. This contrast dye is also used in some CT scans, angiography, and x-ray or fluoroscopy procedures. Have you ever had Iodinated contrast dye before? YES If no, continue to question 5. If yes, question E opens. Did you have any type of reaction? NO If no, continue to question 5. If yes, questions a, b, and c open. Have you ever had a reaction to iodine, including topical iodine? NO If no, smart phrase ends with text at If yes, questions F and G open. If no history of allergy or reaction, patient may be marked ready for procedure after all assessment components complete. If patient reported any history of PEG allergy, iodinated contrast allergy, reaction to colonoscopy prep, Covid-19 vaccine, or iodine, inform radiologist before marking patient ready for procedure. Proceed with Hydrogel placement? YES documented in this encounter Plan of Treatment Upcoming Encounters Date Type Department Care Team (Late st Contact Info) Description 12/08/2023 8:45 AM CDT Office Visit Department of Urology in [place], [place] [address] [phone] Heladio Ram M.D. [address] [phone] 12/16/2023 1:45 PM CDT Appointment Department of Radiation Oncology in [place], [place] [address] [place] [phone] Thomas Pino M.D. [address] [place] [address] documented as of this encounter Procedures Procedure Name Priority Date/Time Associated Diagnosis Comments US PROSTATE FIDUCIAL MARKER PLACEMENT WITH HYDROGEL SPACER RAD - Routine (most inpatients and all outpatients) 11/20/2023 11:39 AM CDT Primary Malignant Neoplasm Of Prostate (HCC) documented in this encounter Results * US Prostate Fiducial [...] hydrogel was prepared as described in the solutions executive cloud sales's Instructions For Use. With the subject maintained [...] hydrogel was prepared as described in the solutions executive cloud sales'sInstructions For Use. With the subject maintained in [...] Of Prostate (HCC) documented in this encounter Administered Medications Inactive Administered Medications - up to 3 most recent administrations Medication Order MAR Action Action Date Dose Rate Site lidocaine 10 mg/mL (1 %) injection (XYLOCAINE) As needed, Starting on Casi 11/20/23 at 1055, Intra-Op Given 11/20/2023 10:55 AM CDT 25 mL Other documented in this encounter Active and Recently Administered Medications Times are shown in CDT. PRN Medication Order 11/18/2023 11/19/2023 11/20/2023 lidocaine 10 mg/mL (1 %) injection (XYLOCAINE) (COMPLETED) As needed, Starting on Casi 11/20/23 at 1055, Intra-Op 1055 (Given - Provid er: Evelyn Vincent, Ch.B. - Comment: perineum) documented in this encounter Additional Health Concerns Assessment Noted Time PHQ-9 Depression Total Score: 0 08/14/19 16 8:27 AM FORESTER SILVICULTURE documented as of this encounter Care Teams Mine Wedge Sawyer Relationship Specialty Start Date End Date Samara Lu APRN, C.N.P. [address] [place] [phone] PCP - General Family Medicine 03/18/22 documented as of this encounter
--- OUTSIDE RECORDS SUMMARY | 2023-12-04 13:07 | XMS_ITS | Encounter Summary ---
Author Name Unknown Organization [facility] Address [address] [place] [address] Care Team Providers Care Automotive Fuel Systems Converter Name Role Phone Samara Lu APRN, C.NRadhaPRadha Primary Care [facility] Reason for Visit * Reason Comments Prostate Cancer * Outpatient (Routine) - Closed Specialty Diagnoses / Procedures Referred By Elvin baker Referred To Contact Diagnoses Primary Malignant Neoplasm Of Prostate (HCC) Procedures Enema Prep Sharifa Mann M.D. [address] [place] [phone] [facility] Referral ID Status Reason Start Date Expiration Date Visits Re quested Visits Authorized [id number] Closed 11/14/2023 11/13/2024 1 1 Encounter Details Date Type Department Care Team (Late st Contact Info) Description 11/20/2023 8:45 AM CDT Clinical Support Enema Prep Facility in [place], [place] [address] [place] [phone] Sharifa Mann M.D. [address] [place] [phone] Michelle Mosquera RSanjay [address] [place] [phone] Primary Malignant Neoplasm Of Prostate (HCC) Social History Tobacco Use Types Packs/Day Years [...] How often do you attend chur or confucianist services? More than 4 times per year 04/12/2022 Do you belong to any clubs o r organizations such as jainism groups, unions, fraternal or athletic groups, or [...] Answer Date Recorded PHQ-2 Score 0 10/11/[address] [facility] - Occupational Stress Questionnaire Answer Date Recorded [...] place to sleep or slept in a residential (including now)? No 04/12/2022 Nutrition Answer Date [...] Sexual Orientation Straight 06/10/2018 2: 45 PM INDUSTRIAL PROPERTY APPRAISER documented as of this encounter Procedure Notes * Michelle Mosquera RRadhaN. - 11/20/2023 8:45 AM CDT Enema Prep Facility SUBJECTIVE: CHIEF COMPLAINT / REASON FOR VISIT Bowel prep prior to radiation therapy HISTORY OF PRESENT ILLNESS Mr. Billy James is scheduled for radiation therapy appointments that require a bowel prep prior to the appointments. OBJECTIVE: Criteria that must be met to self-administer a sodium phosphate enema: Patient met inclusion criteria for the Rectal Enema Administration and Colostomy Irrigation nursingprotocol and the preferred bowel prep is a sodium phosphate enema. 2. Patient agrees to self-administer sodium phosphate enemas. 3. Travel time to radiation therapy appointments is 1 hour or less. 4. Patient tolerated the sodium phosphate enema during EPF appointment. 5. Patient is able to purchase sodium phosphate enemas at their local pharmacy. The patient met the above criteria for sodium phosphate self-administration. Mr. James will be receiving his radiation treatments in [place]. Impression/Report/Plan #1 Bowel Prep Mr. James will self-administer sodium phosphate enemas prior to radiation therapy appointments. Hewas agreeable to the plan of care and is able to teach- back self-administration of a sodium phosphate enema. If Mr. James is unable to self-administer the sodium phosphate enema he was instructed tocall his local [place] clinic for instructions. documented in this encounter Plan of Treatment Upcoming Encounters Date Type Department Care Team (Late st Contact Info) Description 12/08/2023 8:45 AM CDT Office Visit Department of Urology in [place], [place] [address] [place] [phone] Heladio Ram M.D. [address] [place] [phone] 12/16/2023 1:45 PM CDT Appointment Department of Radiation Oncology in [place], [place] [address] [place] [address] Thomas Pino M.D. [address] [place] [phone] documented as of this encounter Visit Diagnoses Diagnosis Primary Malignant Neoplasm Of Prostate (HCC) documented in this encounter Administered Medications Inactive Administered Medications - up to 3 most recent administrations Medication Order MAR Action Action Date Dose Rate Site sodium phosphates enema 1 enema (FLEET) 1 enema, rectal, Once, On Casi 11/20/23 at 0900, For 1 dose, Prep according to the Timing of Enema Completion Chart., Indications: bowel evacuation Given 11/20/2023 8:39 AM CDT 1 enema documented in this encounter Additional Health Concerns Assessment Noted Time PHQ-9 Depression Total Score: 0 08/14/19 16 8:27 AM INDUSTRIAL PROPERTY APPRAISER documented as of this encounter Care Teams Automotive Fuel Systems Converter Relationship Specialty Start Date End Date Samara Lu APRN, C.N.P. [address] [place] [phone] PCP - General Family Medicine 03/18/22 documented as of this encounter
--- OUTSIDE RECORDS SUMMARY | 2023-12-04 13:07 | XMS_ITS | Clinical Summary ---
Author Name Unknown Organization [facility] Address [place], [place] [address] Care Team Providers Care Animator Name Role Phone [facility] Primary Care Provider [phone] Allergies No known active allergies Medications Medication Sig Dispensed Refills Start Date End Date Status omega-3 fatty acids-vitamin E (FISH OIL) 1,000 mg cap Take 1 Capsule by mouth once daily. 0 05/02/2011 Active atorvastatin (LIPITOR) 20 mg tablet Take 20 mg by mouth once daily. 03/12/2022 Active cyanocobalamin (VITAMIN B12) 1,000 mcg tablet Take 1,000 mcg by mouth once daily. 05/11/2022 Active fluticasone (50 mcg per actuation) nasal solution (FLONASE) Inhale 2 Sprays into affected nostril(s) once daily if needed. Active magnesium 250 mg tab Take 250 mg by mouth once daily. Active sulindac (CLINORIL) 200 mg tablet Take 1 Tablet by mouth 2 times daily if needed for Pain. 12/30/2020 Active cycloSPORINE (Restasis MultiDose) 0.05 % drop Place 1 Drop into the eye(s) two times daily. Active VITAMIN E ACETATE ORAL Take 1 Tablet by mouth once daily. Active triamcinolone (ARISTOCORT; KENALOG) 0.1 % cream APPLY TO AFFECTED AREA(S) TOPICALLY 1-2 TIMES DAILY NEEDED. AVOID FACE AND GROIN. 04/17/2022 Active cholecalciferol (VITAMIN D3) 1,000 unit tablet Take 2 Tablets (2,000 units) by mouth once daily. 0 08/15/2022 Active Active Problems Problem Noted Date Diagnosed Date Hyperlipidemia LDL goal < 130 09/20/2013 Colon polyps 04/07/2013 S/P blepharoplasty 05/15/2011 Sjogren syndrome Resolved Problems Problem Noted Date Diagnosed Date Resolved Date Systemic lupus erythematosus 08/29/2008 08/29/2008 Immunizations Name Administration Dates Next Due Influenza, High-dose Inactivated 05/20/2014 Influenza, IIV3 (Age >=3 years) 06/10/2013,05/02,07/20/2009 Pneumococcal Poly,23-Valent (Pneumovax) 05/02/20 11 Td, Preservative Free (age >= 7 Years) 9 Tdap 05/20/2014 Varicella Vaccine 06/30/2011 Zoster (Zostavax-ZVL, live) 07/11/2011 Family History Medical History Relation Name Comments Diabetes Brother 3 type II Stroke Father 50's Stroke Mother 80's Relation Name Status Comments Brother 1 Alive x6 Brother 2 x3 Brother 3 Daughter Alive Father Mother Sister Alive x3 Son Alive x2 Social History Tobacco Use Types Packs/Day Years Used Date Smoking Tobacco: Former Cigarettes Q uit: 07/21/1980 Smokeless Tobacco: Former Chew Tobacco Cessation:Counseling Given: Yes Alcohol Use Standard Drinks/Week Comments Yes 0 (1 standard drink = 0.6 oz pur e alcohol) occ. Sex and Gender Information Value Date Recorded Sex Assigned at Not on file Gender Identity Not on file Sexual Orientation Not on file Obstetrics History Last Filed Vital Signs Vital Sign Reading Time Taken Comments Blood Pressure 122/71 04/14/2018 1:30 PM CDT Pulse 91 08/15/2022 1:28 PM FARE ENFORCEMENT OFFICER Temperature 36.3 ??C (97.4 ??F) 04/14/2018 12:00 PM C DT Respiratory Rate 16 04/14/2018 1:30 PM CDT Oxygen Saturation 95% 08/15/2022 1:28 PM FARE ENFORCEMENT OFFICER Inhaled Oxygen Concentration - - Weight 80.3 kg (177 lb) 08/15/2022 1:28 PM FARE ENFORCEMENT OFFICER Height 168 cm (5' 6.14) 05/21/2022 12:40 PM CDT Body Mass Index 28.45 05/21/2022 12:40 PM CDT Plan of Treatment Health Maintenance Due Date Last Done Comments Depression screening for age 12+ 1957 BMI (ht and wt on same day) for age 18+ 1963 Hepatitis C screening for ag e 18-79 1963 Medicare Wellness for age 65+ 2010 Zoster (shingles) series for age 50+ (2 of 3) 09/05/2011 07/11/2011 Pneumococcal series for age 65+ (2 of 2 - PCV) 05/02/2012 05/02/2011 COVID-19 vaccine series (2022-24 season) 2023 06/07/2022, 02/27/2022, 05/30/2021, Additional history exists Influenza for age 65+ 03/21/2024 05/20/2014 , 06/10/2013, 05/02/2011, Additional history exists Tetanus booster 05/20/2024 05/20/2014, 08/27/2008 Tdap Completed 05/20/2014 Advance Directives Documents on File Type Date Recorded Patient Sheet Sewer Expl anation Healthcare Directive 04/05/2013 9:41 AM * Full Code (Latest Code Status on File) Date Activated Date Inactivated Comments 04/14/2018 11:55 AM 04/14/2018 3:54 PM Question Answer Comments Code Status Discussion: Discussed * Full Code Date Activated Date Inactivated Comments 01/03/2010 4:54 PM 01/04/2010 1:41 PM * Full Code Date Activated Date Inactivated Comments 01/03/2010 10:09 AM 01/03/2010 4:54 PM * Full Code Date Activated Date Inactivated Comments 10/31/2009 1:01 PM 11/01/2009 2:35 PM * Full Code Date Activated Date Inactivated Comments 10/31/2009 7:23 AM 10/31/2009 1:01 PM Care Teams Animator Relationship Specialty Start Date End Date [facility] [address] [place] [address] PCP - General 05/10/22
--- OUTSIDE RECORDS SUMMARY | 2023-12-04 13:07 | XMS_ITS | Encounter Summary ---
Author Name Unknown Organization [facility] Address [address] [place] [address] Care Team Providers Care Construction Technician Name Role Phone Samara Lu APRN, C.N.P. Primary Care Provi adry Reason for Referral * Outpatient (Routine) - Authorized Specialty Diagnoses / Procedures Referred By Elvin baker Referred To Contact Urology Heladio Ram M.D. [address], [place] [address] [facility] Referral ID Status Reason Start Date Expiration Date V isits Requested Visits Authorized [id number] Authorized 10/30/2023 04/30/2025 1 1 * Outpatient (Routine) - Closed Specialty Diagnoses / Procedures Referred By Elvin baker Referred To Contact Radiation Oncology Diagnoses Primary Malignant Neoplasm Of Prostate (HCC) Heladio Ram M.D. [address], [place] [address] [facility] Region Referral ID Status Reason Start Date Expiration Date Visits Re quested Visits Authorized [id number] Closed 10/30/2023 04/30/2025 1 1 Reason for Visit * Reason Comments Follow-up * Outpatient (Routine) - Closed Specialty Diagnoses / Procedures Referred By Elvin baker Referred To Contact Urology Heladio Ram M.D. [address] [address] [facility] Referral ID Status Reason Start Date Expiration Date Visits Re quested Visits Authorized [id number] Closed 07/03/2023 07/02/2026 1 1 Encounter Details Date Type Department Care Team (Late st Contact Info) Description 10/30/2023 1:30 PM CDT Office Visit Department of Urology in [place], [place] [address] [place] [phone] Heladio Ram M.D. [address] [address] Primary Malignant Neoplasm Of Prostate (HCC) (Primary [...] often do you attend chur ch or denominational services? More than 4 times per year 04/12/2022 Do you belong to any clubs o r organizations such as congregational groups, unions, fraternal or athletic groups, or [...] Answer Date Recorded PHQ-2 Score 0 10/11/2022 [facility] - [...] place to sleep or slept in a group home (including now)? 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 - 10/30/2023 1:30 PM CDT SUBJECTIVE CHIEF COMPLAINT / REASON FOR VISIT Chief Complaint Patient presents with Follow-up HISTORY OF PRESENT ILLNESS Billy James is a 78 y.o. male who was diagnosed with prostate cancer. Biopsies were performed on July 05, 2021. 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 At this time the patient remains asymptomatic. Prostate specific antigen table August 14, 2015 4.7 March 13, 2017 4.8 January 03, 2021 7.2 February 01, 2021 7.8 May 15, 2021 6.5 September 27, 2021 8.2 I January 28, 2022 7.1 May 20, 2022 7.1 September 17, 2022 7.3 January 17, 2023 8.2 May 23, 2023 8.7 Prostate MRI was performed on May 16, 2023. This demonstrated multiple PI- RADS lesions, suggesting that his biopsy may be under life assurance representative of the total volume of disease. However nothing was present to suggest metastatic disease. He went on to have repeat biopsies performed on June 26, 2023. Biopsies revealed [place] 3 + 3 in one core. The following portions of the patient's history were reviewed and updated as appropriate: allergies, current medications, family history, medical history, social history, surgical history and problemlist. OBJECTIVE Results for orders placed or performed during the hospital encounter of 10/23/23 Alkaline Phosphatase Result Value Ref Range Alkaline Phosphatase, P 60 40 - 129 U/L Creatinine with Estimated GFR Result Value Ref Range Creatinine 0.99 0.74 - 1.35 mg/dL Estimated GFR (eGFR) 78 >=60 mL/min/BSA PSA (Prostate-Specific Antigen), Diagnostic Result Value Ref Range Prostate-Specific Ag 10.2 (H) <=6.5 ng/mL ASSESSMENT / PLAN #1 Primary Malignant Neoplasm Of Prostate (HCC) His prostate specific antigen is continuing to go up. PLAN: The patient and I agreed to have him get an opinion from Radiation Oncology. He is informed that this will be done in [place]. He is also aware that they may request additional testing including potentially a repeat biopsy. If desired, we can manage his androgen deprivation therapy. We will planto see him in 4 to 8 weeks to review the conclusion of his upcoming consultation. Heladio Ram M.D. 10/30/23 1:40 PM CDT documented in this encounter Plan of Treatment Upcoming Encounters Date Type Department Care Team (Late st Contact Info) Description 12/08/2023 8:45 AM CDT Office Visit Department of Urology in [place], [place] [address] [address] Heladio Ram M.D. [address], [place] [address] 12/16/2023 1:45 PM CDT Appointment Department of Radiation Oncology in [place], [place] [address] [place] [phone] Thomas Pino M.D. [address] [place] [address] Scheduled Referrals Name Type Priority Associated Diagnoses Orde r Schedule Radiation Oncology - consult (clinic) Outpatient Referral Routine Primary Malignant Neoplasm Of Prostate (HCC) Expected: 10/30/2023, Expires: 01/28/2025 Urology office visit (clinic) Outpatient Referral Routine Expected: 11/29/2023, Expires: 01/28/2025 documented as of this encounter Visit Diagnoses Diagnosis Primary Malignant Neoplasm Of Prostate (HCC)- Primary documented in this encounter Additional Health Concerns Assessment Noted Time PHQ-9 Depression Total Score: 0 08/14/19 16 8:27 AM [employer]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 [address] [place] [phone] PCP - General Family Medicine 03/18/22 documented as of this encounter
--- OUTSIDE RECORDS SUMMARY | 2023-12-04 13:07 | XMS_ITS | Encounter Summary ---
Author Name Unknown Organization [facility] Address [address] [place] [address] Care Team Providers Care Pot Tender Name Role Phone Samara Lu APRN, C.N.P. Primary Care Provi adry Reason for Referral * Outpatient (Routine) - Authorized Specialty Diagnoses / Procedures Referred By Contac t Referred To Contact Samara Lu APRN, C.N.P. [address] [place] [address] [facility] Region Referral ID Status Reason Start Date Expiration Date V isits Requested Visits Authorized [id number] Authorized 08/26/2023 02/24/2025 1 1 Scheduling Instructions Nurse AWV Do not schedule prior to due date to ensure insurance coverage Visit: Medicare Annual Wellness Never done. R TESTER * Outpatient (Routine) - Authorized Specialty Diagnoses / Procedures Referred By Contac t Referred To Contact Family Medicine Samara Lu APRN, C.N.P. [address] [place] [address] [facility] Region Referral ID Status Reason Start Date Expiration Date V isits Requested Visits Authorized [id number] Authorized 08/26/2023 02/24/2025 1 1 Scheduling Instructions Medicare annual provider visit/HCC gaps Do not schedule prior to due date to ensure insurance coverage Visit: Medicare Annual Wellness Never done. R TESTER Encounter Details Date Type Department Care Team (Late st Contact Info) Description 08/26/2023 Orders Only [facility] Samara Lu APRN, C.N.P. [address] [place] [address] Social History Tobacco Use Types Packs/Day Years [...] often do you attend chur ch or roman catholic services? More than 4 times per year 04/12/2022 Do you belong to any clubs o r organizations such as mormon groups, unions, fraternal or athletic groups, or [...] Answer Date Recorded PHQ-2 Score 0 10/11/2022 [facility] - [...] place to sleep or slept in a fci (including now)? 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 [address] [place] [address] 12/16/2023 1:45 PM CDT Appointment Department of Radiation Oncology in [place], [place] [address] [place] [address] Thomas Pino M.D. [address] [place] [address] Scheduled Referrals Name Type Priority Associated Diagnoses Orde r Schedule Family Medicine office visit (clinic) Outpatient Referral Routine Expected: 09/23/2023, Expires: 02/22/2024 Primary Care nurse visit (clinic) - [facility]; Medicare Annual Wellness Outpatient Referral Routine Expected: 09/23/2023, Expires: 02/22/2024 documented as of this encounter Visit Diagnoses Not on filedocumented in this encounter Additional Health Concerns Assessment Noted Time PHQ-9 Depression Total Score: 0 08/14/19 16 8:27 AM PAPER TESTER documented as of this encounter Care Teams Pot Tender Relationship Specialty Start Date End Date Samara Lu APRN, C.N.P. [address] [place] [address] PCP - General Family Medicine 03/18/22 documented as of this encounter
== END 2023-12-04 13:03 | disposition home or self-care (01) ==
LOC: MRI 13:03
PROVIDERS: PCP Nurse Practitioner Family; Visit Provider Internal Medicine
DX: C61 Malignant neoplasm of prostate (principal)
CPT/HCPCS: 72195